=== PATIENT | female | born 1970 | race Two or more races ===

== ENCOUNTER 2020-03-04 17:56 | Inpatient (IN) | payer MEDICARE, OTHER ==
[~2020-03-04] VITALS: Ht 160 cm; Wt 46.7 kg
[2020-03-04] MEDS ORDERED: AMLO10TA7 PO (18:23)
[2020-03-04] MEDS ORDERED: MEROPENEM 500 MG in IV NS 0.9% 50 ML IV ONE (18:30)
[2020-03-04] MEDS ORDERED: ACETAMINOPHEN 650 MG/SUPP.RECT RC ONE ×2 (18:30→18:32)
[2020-03-04] MEDS ORDERED: VANCOMYCIN 1 GM in IV D5W 250 ML IV ONE (18:30)
--- NOTE | 2020-03-04 18:33 | NUR ---
RT NOTE PT RECEIVED IN ER TRACHED AND ON [facility] VENTILATION ON GIVEN SETTINGS. NO SIGNS OF RESPIRATORY DISTRESS NOTED. VENT PLUGGED INTO RED OUTLET WITH ALARMS ON AND AUDIBLE. Addendum: 03/04/20 at 1835 by BYRON QUINTANA RT Amended: Links added.
[2020-03-04 18:34] LABS: BASOPHILS # (AUTO) 0.2 /CMM (0.0-0.2); BASOPHILS % (AUTO) 0.5 % (0.0-2.0); EOSINOPHILS % (AUTO) 0.1 % (0.0-6.0); HEMATOCRIT 26 % (33-45); HEMOGLOBIN 8.1 g/dL (11.5-14.8); LYMPHOCYTES # (AUTO) 0.5 /CMM (0.8-4.8); MEAN CORPUSCULAR HGB CONC 31 g/dl (31.0-36.0); MEAN CORPUSCULAR VOLUME 94 fL (82-100); MONOCYTES # (AUTO) 0.9 /CMM (0.1-1.30); MONOCYTES % (AUTO) 3.1 % (2.0-12.0); NEUTROPHILS # (AUTO) 26.4 /CMM (1.8-8.9); NEUTROPHILS % (AUTO) 94.3 % (43.0-81.0); PLATELET COUNT (AUTO) 226 /CMM (150-450); RED BLOOD CELL COUNT(AUTO) 2.74 MIL/uL (4.0-5.2)
[2020-03-04 18:49] LABS: ALANINE AMINOTRANSFERASE 38 U/L (12-78); ALBUMIN 2.2 g/dL (3.4-5.0); ALKALINE PHOSPHATASE 329 U/L (46-116); ASPARTATE AMINOTRANSFERASE 31 U/L (15-37); BILIRUBIN,DIRECT 0.2 mg/dL (0.0-0.2); BILIRUBIN,TOTAL 0.7 mg/dL (0.2-1.0); CALCIUM, SERUM 8.4 mg/dL (8.5-10.1); CARBON DIOXIDE 27 mmol/L (21-32); CHLORIDE 94 mmol/L (98-107); CREATININE 1.8 mg/dL (0.6-1.3); GLUCOSE 226 mg/dL (74-106); SODIUM SERUM 137 mmol/L (136-145); TOTAL PROTEIN, SERUM 8.1 g/dL (6.4-8.2); UREA NITROGEN, BLOOD 29 mg/dL (7-18)
[2020-03-04 18:51] LABS: POTASSIUM 2.7 mmol/L (3.5-5.1)
--- NOTE | 2020-03-04 18:54 | NUR ---
[facility] FROM [facility]. TO ER BED 5. AAOX0. NOT IN RESP DISTRESS, PT IS VENT AND TRACH DEPENDENT, AC12, VT500, O2 40%, +5PEEP. BED BOUND. BROUGHT IN FOR HYPOTENTION S/P DIALYISIS. PT WAS NOTED @ 78/42 AFTER HD WAS DONE. PT WAS REPORT TO FINISH HER SESSION AND WEIGHT WAS 1/2 KILO NIGHT BAKER AFTER THE HD. UPON ASSESSMENT BP NOTED 93/47. PT IS NOTED WITH GT. WAS AT THE BEDSIDE FOR EVAL. ORDERS RECEIVED NOTED AND CARRIED OUT. IV LINE ESTABLISHED ON LFA 18F. BLOOD DRAWN AND GIVEN TO ARMATURE TESTER. PT IS ON MONITOR.
[2020-03-04] MEDS ORDERED: ACET-868 GT (19:00)
[2020-03-04] MEDS ORDERED: ATOR20TA GT (19:00)
[2020-03-04] MEDS ORDERED: CLON0.2T GT (19:00)
[2020-03-04] MEDS ORDERED: POLY17PO4 GT (19:00)
[2020-03-04] MEDS ORDERED: DOCU-141 GT (19:00)
[2020-03-04] MEDS ORDERED: AMIN887L GT (19:00)
[2020-03-04] MEDS ORDERED: HEPA1DIS12 IJ (19:00)
[2020-03-04] MEDS ORDERED: METO-295 PO (19:00)
[2020-03-04] MEDS ORDERED: MINO2.5T GT (19:00)
[2020-03-04] MEDS ORDERED: LACO200T2 GT (19:00)
[2020-03-04] MEDS ORDERED: DOXA4TAB3 GT (19:00)
[2020-03-04] MEDS ORDERED: SEVE800T8 GT (19:00)
[2020-03-04] MEDS ORDERED: SENN-18 GT (19:00)
[2020-03-04] MEDS ORDERED: LINA5TAB PO (19:00)
[2020-03-04] MEDS ORDERED: FOLI0.8T2 GT (19:00)
[2020-03-04] MEDS ORDERED: NITR0.4T48 SL (19:00)
[2020-03-04] MEDS ORDERED: HYDR-4075 GT (19:00)
[2020-03-04] MEDS ORDERED: PROC10TA13 GT (19:00)
[2020-03-04] MEDS ORDERED: CHLO473M3 MM (19:00)
[2020-03-04] MEDS ORDERED: LOSA50TA39 GT (19:00)
[2020-03-04] MEDS ORDERED: SIME80TA15 GT (19:00)
[2020-03-04] MEDS ORDERED: LEVE1000 GT (19:00)
[2020-03-04] MEDS ORDERED: PROP10TA10 PO (19:00)
[2020-03-04] MEDS ORDERED: NPH,100V SQ (19:00)
[2020-03-04] MEDS ORDERED: LANS30CA56 GT (19:00)
[2020-03-04] MEDS ORDERED: INSU100I43 SQ (19:00)
[2020-03-04] MEDS ORDERED: ONDA4TAB11 GT (19:00)
--- NOTE | 2020-03-04 19:23 | NUR ---
panel paged per Dr Brown's order
[2020-03-04] MEDS ORDERED: ACETAMINOPHEN 650 MG/SUPP.RECT RC PRN (20:00)
[2020-03-04] MEDS ORDERED: ONDANSETRON HCL/PF 4 MG/2 ML VIAL IVP PRN (20:00)
--- NOTE | 2020-03-04 20:10 | NUR ---
katie godfrey at bedside for eval
--- NOTE | 2020-03-04 20:13 | NUR ---
mid line inplace by epifanio wilson on BIJU with 18g.
[2020-03-04] MEDS: POTASSIUM CL. PREMIX PERIPHER. 50 ML IV SCH ×2 (20:23→21:49)
[2020-03-04] MEDS ORDERED: MIDODRINE HCL (5MG) 5 MG TABLET GT PRN (20:30)
[2020-03-04] MEDS ORDERED: DEXAMETHASONE SOD PHOSPHATE 10 MG/ML VIAL IV ONE (20:30)
[2020-03-04] MEDS ORDERED: ALBUTEROL SULFATE 8 GM HFA.AER.AD IH PRN (20:30)
[2020-03-04] MEDS ORDERED: DEXTROSE 50%-WATER 50 ML DISP.SYRIN IV PRN (20:30)
[2020-03-04] MEDS ORDERED: NEPRO 1,000 ML BOTTLE GT PRN (20:30)
[2020-03-04] MEDS ORDERED: PROCHLORPERAZINE MALEATE 10 MG TABLET GT PRN (21:30)
[2020-03-04] MEDS ORDERED: SIMETHICONE 80 MG TAB.CHEW GT PRN ×2 (21:30→23:30)
[2020-03-04] MEDS ORDERED: NITROGLYCERIN 0.4 MG/TAB BOTTLE SL PRN (21:30)
[2020-03-04] MEDS ORDERED: POLYETHYLENE GLYCOL 3350 17 GM POWD.PACK GT PRN (21:30)
[2020-03-04] MEDS ORDERED: POTASSIUM CL. PREMIX PERIPHER. 50 ML ONE (21:45)
--- NOTE | 2020-03-04 21:45 | NUR ---
gabriella overflow [phone]
--- NOTE | 2020-03-04 21:58 | NUR ---
REPORT GIVEN TO RUDDY MYRICK FOR ELLIOT
--- NOTE | 2020-03-04 22:17 | NUR ---
ICU/COMMUNITY SUPPORT PROFESSIONAL RECEIVED REPORT REPOST FROM ER NURSE.
[2020-03-04 22:30] VITALS: BP 93/60
--- NOTE | 2020-03-04 22:30 | NUR ---
ICU/OPERATING ROOM TECHNOLOGIST PT PLACED IN BED FROM ER, PLACED ON MONITOR. PT IS TELE STATUS, IN ICU WITH R/O COVID. WILL CONTINUE TO MONITOR THIS PT.
[2020-03-04] MEDS ORDERED: ATORVASTATIN 10 MG TABLET GT SCH (22:31)
--- NOTE | 2020-03-04 22:31 | NUR ---
pt transported to unit on gurney with emt, rt, and rn at bedside w/ acls protocol. nad notd during this transport.
[2020-03-04 22:33] VITALS: BP 126/64
[2020-03-04 23:00] VITALS: BP 93/60
[2020-03-04] MEDS: IV NS 0.9% 250 ML IV PRN (23:06)
[2020-03-04] MEDS ORDERED: PIPERACILLIN /TAZOBACTAM 3.375 G VIAL IV ONE (23:13)
[2020-03-04] MEDS: DEXAMETHASONE SOD PHOSPHATE 10 MG/ML VIAL IV SCH (23:19)
[2020-03-04] MEDS: SENNOSIDES 8.6 MG TABLET GT SCH (23:19)
[2020-03-04] MEDS: LACOSAMIDE 50 MG TABLET GT SCH (23:20)
[2020-03-04 23:28] LABS: C-REACTIVE PROTEIN 17.7 mg/dL (0.0-0.9)
[2020-03-04 23:30] VITALS: BP 91/49
[2020-03-04] MEDS: PIPERACILLIN /TAZOBACTAM 3.375 G in IV D5W 50 ML IV SCH (23:36)
[2020-03-04 23:47] VITALS: BP 85/53
[2020-03-04] MEDS: BLOOD SUGAR DIAGNOSTIC 1 EACH STRIP IN SCH (23:57)
[2020-03-04] MEDS: INSULIN REGULAR, HUMAN 100 UNIT/ML 3 ML VIAL SQ PRN (23:58)
[2020-03-05] VITALS (82 sets, daily range): BP systolic 81–155; BP diastolic 45–85
[2020-03-05] MEDS ORDERED: PIPERACILLIN /TAZOBACTAM 3.375 G in IV D5W 50 ML IV SCH ×2
[2020-03-05] MEDS ORDERED: NOREPINEPHRINE 8MG/250ML RTU 250 ML IV ONE (00:04)
--- NOTE | 2020-03-05 00:15 | NUR ---
ICU/SUBSTATION OPERATOR CHIEF 0000-LOW BP PT'S BP IS 80'S, MADE CHARGE NURSE AWARE OF THIS. CALL PLACED TO BRIDGE SAW OPERATOR MD JOY VILLEGAS FOR THIS. GAVE ORDER FOR SINGLE DOSE LEVO TO KEEP SBP ABOVE 90. CHARGE NURSE MADE AWARE OF THIS ORDER. ALSO CHANGED PT'S STATUS TO ICU FROM TELE. 0015-LEVO UP LEVO STARTED AT LOW DOSE 0.1 PER PROTOCOL FOR LOW BP 80'S. WILL MONITOR THIS PT'S BP PER PROTOCOL.
[2020-03-05] MEDS ORDERED: NOREPINEPHRINE 8 MG in IV NS 0.9% 242 ML IV PRN (00:30)
--- NOTE | 2020-03-05 00:40 | NUR ---
ICU/SUPERVISOR QUILTING NEPHRO FEEDING STARTED AT 40ML WITH GOAL AT 60ML. WILL CHECK AND MONITOR RESIDUALS CLOSELY.
--- NOTE | 2020-03-05 01:00 | NUR ---
ICU/DIRECTOR RADIO PT TOLERATING FEEDING, INCREASED TO 50ML FROM 40ML, GOAL IS 60. WILL MONITOR THIS PT'S RESIDUAL.
--- NOTE | 2020-03-05 01:24 | NUR ---
RT NOTE Pt rec'd trached on [facility] vent on AC mode. Pt shows no signs of resp distress or sob. Trach is patent and secured. Pt sx'd for thick mod amount of yellow secretions. Alarms are set and audible. Vent plugged into red outlet. ambu bag and emergency spare trach is bedside. Will continue to monitor closely. Addendum: 03/05/20 at 0124 by FLOR VILLA RT Amended: Links added.
[2020-03-05] MEDS ORDERED: INSULIN REGULAR, HUMAN 100 UNIT/ML 3 ML VIAL ONE (02:08)
--- NOTE | 2020-03-05 03:00 | NUR ---
ICU/SWISS MACHINIST PT'S SBP IS STABLE AT 130'S LEVO ON HOLD PER CHARGE NURSE, AND PROTOCOL WILL CONTINUE TO MONITOR THIS PT'S SBP.
--- NOTE | 2020-03-05 04:00 | NUR ---
ICU/CONCHE OPERATOR SBP STATED AGAIN DUE TO SBP AT 80'S, PT WAS TURNED AND REPOSITIONED FOR COMFORT AND CARE. WILL CONTINUE TO MONITOR THIS PT.
--- NOTE | 2020-03-05 05:00 | NUR ---
ICU/PORT CRANE OPERATOR SBP IS STABLE AT 100'S, LEVO WAS DECREASED DOWN TO 0.08 FROM 0.1. WILL CONTINUE TO MONITOR THIS PT AND HER SBP.
[2020-03-05] MEDS ORDERED: PIPERACILLIN /TAZOBACTAM 3.375 G VIAL IV ONE (05:16)
[2020-03-05] MEDS ORDERED: INSULIN NPH, HUMAN ISOPHANE 100 UNIT/ML VIAL SQ ONE (05:29)
--- NOTE | 2020-03-05 06:00 | NUR ---
ICU/COIN WRAPPING MACHINE OPERATOR SBP IS STABLE AT 100'S, LEVO WAS DECREASED DOWN TO 0.06 FROM 0.06. WILL CONTINUE TO MONITOR THIS PT AND HER SBP.
[2020-03-05] MEDS: SEVELAMER CARBONATE 800 MG POWD.PACK GT SCH ×3 (06:22→21:13)
[2020-03-05] MEDS: METOCLOPRAMIDE HCL 10 MG TABLET PO SCH ×3 (06:23→21:14)
[2020-03-05] MEDS: BLOOD SUGAR DIAGNOSTIC 1 EACH STRIP IN SCH ×3 (06:24→18:26)
[2020-03-05] MEDS: INSULIN NPH, HUMAN ISOPHANE 100 UNIT/ML VIAL SQ SCH ×3 (06:24→21:26)
[2020-03-05] MEDS: PIPERACILLIN /TAZOBACTAM 3.375 G in IV D5W 50 ML IV SCH (06:25)
[2020-03-05] MEDS: INSULIN REGULAR, HUMAN 100 UNIT/ML 3 ML VIAL SQ PRN ×3 (06:49→18:28)
--- NOTE | 2020-03-05 07:30 | NUR ---
RN/ICU RECEIVED PATIENT IN BED. NO ACUTE DISTRESS NOTED. PATIENT ALERT TO SELF, OPENS EYES, BUT NONVERBAL. PATIENT ON LEVO RUNNING AT 0.06, SBP AT 118. PATIENT TOLERATING MECHANICAL VENTILATOR SETTINGS WELL, SATURATING AT 100%. PATIENT ON SUPERVISOR MAINTENANCE, NORMAL SINUS RHYTHM NOTED. PATIENT G-TUBE INTACT, FLUSHED WELL. PATIENT RIGHT UPPER ARM MIDLINE IN PLACE, INTACT, PATENT, FLUSHED WELL. PATIENT LEFT FOREARM AND RIGHT WRIST IV ACCESS IN PLACE, INTACT, PATENT, FLUSHED WELL. PATIENT SAFETY MEASURES MAINTAINED. CALL LIGHT WITHIN REACH. WILL CONTINUE TO MONITOR.
--- NOTE | 2020-03-05 08:21 | NUR ---
WOUND CARE CONSULT: REVIEWED CHART, NURSING DOCUMENTATION AND PHOTO WHICH INDICATES SACRAL DEEP TISSUE INJURY IN EVOLUTION, PRESENT ON ADMISSION. RECOMMENDATIONS MADE FOR SKIN PROTECTION. DISCUSSED WITH NURSING STAFF. RECOMMEND SURGICAL CONSULT. FIRST STEP LOW AIRLOSS MATTRESS IS ON ORDER. MD IN AGREEMENT WITH PLAN OF CARE. Addendum: 03/05/20 at 6885 by JOSÉ MULLER WNDNU DR IVORY NOTIFIED OF SURGICAL CONSULT REQUEST.
[2020-03-05] MEDS ORDERED: Z GUARD REMEDY 2 OZ OINT TP PRN (08:30)
[2020-03-05] MEDS: CHLORHEXIDINE GLUCONATE 15 ML UDC MM SCH (08:49)
[2020-03-05] MEDS: LEVETIRACETAM SOL (5 ML) 100 MG/ML UDC GT SCH ×2 (08:49→21:13)
[2020-03-05] MEDS: LACOSAMIDE 50 MG TABLET GT SCH ×2 (08:49→21:13)
[2020-03-05] MEDS: VIT B CMPLX 3/FA/VIT C/BIOTIN 1 TAB TABLET GT SCH (08:49)
[2020-03-05] MEDS: HYDROCORTISONE SOD SUCCINATE 100 MG/2 ML VIAL IV SCH ×3 (08:49→21:11)
[2020-03-05] MEDS: DOCUSATE SODIUM 100 MG CAPSULE PO SCH ×2 (08:50→16:04)
[2020-03-05] MEDS: LINAGLIPTIN 5 MG TABLET PO SCH (08:50)
[2020-03-05] MEDS: APIXABAN 2.5 MG TABLET PO SCH ×2 (08:51→16:05)
[2020-03-05] MEDS: Z GUARD REMEDY 2 OZ OINT TP SCH (08:51)
[2020-03-05] MEDS ORDERED: HEPARIN SODIUM PORCINE IJ SCH (09:00)
[2020-03-05] MEDS ORDERED: MINOXIDIL (2.5MG) 2.5 MG TABLET GT SCH (09:00)
[2020-03-05] MEDS ORDERED: DOXAZOSIN MESYLATE (4 MG) 4 MG TABLET GT SCH (09:00)
[2020-03-05] MEDS ORDERED: [UNRECOGNIZED DRUG - OTHER] IJ SCH (09:00)
[2020-03-05] MEDS ORDERED: VANCOMYCIN 500 MG in IV D5W 100 ML IV PRN (10:00)
[2020-03-05] MEDS ORDERED: PIPERACILLIN /TAZOBACTAM 3.375 G in IV D5W 100 ML IV SCH (10:00)
--- NOTE | 2020-03-05 10:18 | NUR ---
RN/ICU PER DIETARY, CHANGING TUBE FEEDING FROM NEPRO AT 60 TO NEPRO AT 30.
[2020-03-05 11:13] LABS: BASOPHILS # (AUTO) 0.1 /CMM (0.0-0.2); BASOPHILS % (AUTO) 0.3 % (0.0-2.0); EOSINOPHILS % (AUTO) 0.1 % (0.0-6.0); HEMATOCRIT 25 % (33-45); HEMOGLOBIN 7.9 g/dL (11.5-14.8); LYMPHOCYTES # (AUTO) 0.5 /CMM (0.8-4.8); LYMPHOCYTES % (AUTO) 2.2 % (20.0-44.0); MEAN CORPUSCULAR HGB CONC 31 g/dl (31.0-36.0); MEAN CORPUSCULAR VOLUME 94 fL (82-100); MONOCYTES # (AUTO) 0.4 /CMM (0.1-1.30); NEUTROPHILS # (AUTO) 20.5 /CMM (1.8-8.9); NEUTROPHILS % (AUTO) 95.4 % (43.0-81.0); PLATELET COUNT (AUTO) 290 /CMM (150-450); RED BLOOD CELL COUNT(AUTO) 2.69 MIL/uL (4.0-5.2); WHITE BLOOD COUNT (AUTO) 21.5 K/uL (4.3-11.0)
[2020-03-05 11:29] LABS: ALBUMIN 2.2 g/dL (3.4-5.0); BILIRUBIN,TOTAL 0.5 mg/dL (0.2-1.0); CALCIUM, SERUM 9.2 mg/dL (8.5-10.1); CREATININE 2.5 mg/dL (0.6-1.3); MAGNESIUM 2.6 mg/dL (1.8-2.4); PHOSPHORUS 1.9 mg/dL (2.5-4.9); POTASSIUM 3.5 mmol/L (3.5-5.1); TOTAL PROTEIN, SERUM 8.4 g/dL (6.4-8.2)
[2020-03-05] MEDS: PIPERACILLIN /TAZOBACTAM 2.25 G in IV D5W 50 ML IV SCH ×2 (11:42→17:14)
[2020-03-05 11:59] LABS: LYMPHOCYTES % (MANUAL) 4 % (16-48); MONOCYTES % (MANUAL) 2 % (0-11.0); NEUTROPHILS % (MANUAL) 94 (42-76)
[2020-03-05 12:31] LABS: MAGNESIUM 2.6 mg/dL (1.8-2.4)
[2020-03-05 13:47] LABS: THYROID STIMULATING HORMONE 1.183 uIU/mL (0.358-3.74)
[2020-03-05] MEDS ORDERED: IV NS 0.9% 1,000 ML IV PRN (14:30)
[2020-03-05] MEDS ORDERED: NEUTRA PHOS 1 POWD.PACKET GT ONE (16:00)
--- NOTE | 2020-03-05 17:47 | NUR ---
RN/ICU PATIENT CORTISOL LEVEL REPORTED BY LAB OF 90.5. DR. PARIS CONTACTED AND NOTIFIED. AWAITING ORDERS
--- NOTE | 2020-03-05 18:54 | NUR ---
PATIENT IN BED. NO ACUTE DISTRESS NOTED. PATIENT ALERT TO SELF, OPENS EYES, BUT NONVERBAL. PATIENT TOLERATING MECHANICAL VENTILATOR SETTINGS WELL, SATURATING AT 100%. PATIENT ON EDUCATION AND OUTREACH COORDINATOR, NORMAL SINUS RHYTHM NOTED. PATIENT G-TUBE INTACT, FLUSHED WELL. PATIENT RIGHT UPPER ARM MIDLINE IN PLACE, INTACT, PATENT, FLUSHED WELL. PATIENT LEFT FOREARM AND RIGHT WRIST IV ACCESS IN PLACE, INTACT, PATENT, FLUSHED WELL. PATIENT SAFETY MEASURES MAINTAINED. CALL LIGHT WITHIN REACH. WILL ENDORSE PLAN OF CARE TO ONCOMING SHIFT FOR CONTINUITY OF CARE
--- NOTE | 2020-03-05 19:10 | NUR ---
RN OPENING NOTES: Rec'd pt in bed, nonverbal, alert to self. On trach and mechanical ventilation tolerating settings well. No respiratory distress noted. Breathing even and unlabored. SR on tele monitor. GT site patent and flushed with minimal residual noted. GTF Nepro infusing at 30ml/hr, tolerating well. BIJU midline, LFA #18 and right wrist #20 patent and flushed. Dressings c/d/i. Left arm HD cath noted. No pain noted at this time. Safety measures in place. Will continue to monitor.
[2020-03-05] MEDS: SENNOSIDES 8.6 MG TABLET GT SCH (21:14)
[2020-03-05] MEDS: DEXAMETHASONE SOD PHOSPHATE 10 MG/ML VIAL IV SCH (21:14)
--- NOTE | 2020-03-05 21:54 | NUR ---
RN NOTE: Rec'd call from lab. Pt's blood cx came back gram positive cocci + clusters. Paged Ayana SOSA and she responded with "ok".
[2020-03-06] VITALS (21 sets, daily range): BP systolic 133–170; BP diastolic 72–87
[2020-03-06] MEDS: PIPERACILLIN /TAZOBACTAM 2.25 G in IV D5W 50 ML IV SCH ×4 (00:03→17:24)
[2020-03-06] MEDS: BLOOD SUGAR DIAGNOSTIC 1 EACH STRIP IN SCH ×4 (00:12→17:09)
[2020-03-06] MEDS: INSULIN REGULAR, HUMAN 100 UNIT/ML 3 ML VIAL SQ PRN ×4 (00:15→17:27)
[2020-03-06] MEDS: IV NS 0.9% 250 ML IV PRN (01:39)
--- NOTE | 2020-03-06 02:00 | NUR ---
RT NOTE Pt rec'd trached on [facility] vent on AC mode. Pt shows no signs of resp distress or sob. Trach is patent and secured. Pt sx'd for thick mod amount of yellow secretions. Alarms are set and audible. Vent plugged into red outlet. ambu bag and emergency spare trach is bedside. Will continue to monitor closely. Addendum: 03/06/20 at 0200 by FLOR VILLA RT Amended: Links added.
[2020-03-06] MEDS: NEPRO 1,000 ML BOTTLE GT PRN (02:05)
[2020-03-06] MEDS: SEVELAMER CARBONATE 800 MG POWD.PACK GT SCH ×3 (04:35→21:41)
[2020-03-06] MEDS: METOCLOPRAMIDE HCL 10 MG TABLET PO SCH ×3 (04:35→21:40)
[2020-03-06] MEDS: HYDROCORTISONE SOD SUCCINATE 100 MG/2 ML VIAL IV SCH (04:35)
[2020-03-06] MEDS: INSULIN NPH, HUMAN ISOPHANE 100 UNIT/ML VIAL SQ SCH ×3 (04:50→21:00)
[2020-03-06 05:06] LABS: BASOPHILS % (AUTO) 0.1 % (0.0-2.0); HEMATOCRIT 28 % (33-45); HEMOGLOBIN 8.9 g/dL (11.5-14.8); LYMPHOCYTES # (AUTO) 0.3 /CMM (0.8-4.8); LYMPHOCYTES % (AUTO) 1.9 % (20.0-44.0); MEAN CORPUSCULAR HGB CONC 32 g/dl (31.0-36.0); MEAN CORPUSCULAR VOLUME 93 fL (82-100); MONOCYTES # (AUTO) 0.3 /CMM (0.1-1.30); MONOCYTES % (AUTO) 1.5 % (2.0-12.0); NEUTROPHILS # (AUTO) 16.2 /CMM (1.8-8.9); NEUTROPHILS % (AUTO) 96.5 % (43.0-81.0); PLATELET COUNT (AUTO) 261 /CMM (150-450); RED BLOOD CELL COUNT(AUTO) 3.03 MIL/uL (4.0-5.2); WHITE BLOOD COUNT (AUTO) 16.8 K/uL (4.3-11.0)
[2020-03-06 05:30] LABS: ALANINE AMINOTRANSFERASE 30 U/L (12-78); ALBUMIN 2.1 g/dL (3.4-5.0); ALKALINE PHOSPHATASE 332 U/L (46-116); ASPARTATE AMINOTRANSFERASE 19 U/L (15-37); BILIRUBIN,TOTAL 0.5 mg/dL (0.2-1.0); CALCIUM, SERUM 9.6 mg/dL (8.5-10.1); CARBON DIOXIDE 31 mmol/L (21-32); CHLORIDE 94 mmol/L (98-107); CREATININE 3.1 mg/dL (0.6-1.3); GLUCOSE 303 mg/dL (74-106); MAGNESIUM 2.7 mg/dL (1.8-2.4); POTASSIUM 3.8 mmol/L (3.5-5.1); SODIUM SERUM 136 mmol/L (136-145); TOTAL PROTEIN, SERUM 8.2 g/dL (6.4-8.2); UREA NITROGEN, BLOOD 65 mg/dL (7-18)
--- NOTE | 2020-03-06 07:04 | NUR ---
RN CLOSING NOTES: Pt remains stable throughout shift. On trach and mech ventilation, tolerating settings well. No SOB or resp distress noted throughout shift. Breathing even and unlabored. Suctioned as needed. No acute changes noted throughout shift. SR/ST on tele monitor. BIJU midline patent and flushed w/ NS infusing at 75ml/hr. LFA #18 and right wrist #20 patent and flushed. Dressings c/d/i. GT site patent and flushed, with no residuals noted. Nepro infusing at 30ml/hr. Kept clean/dry. Wound tx done. All meds given as ordered. Safety measures in place. Will endorse to oncoming nurse for ELLIOT.
--- NOTE | 2020-03-06 07:30 | NUR ---
rn notes received patient in bed, awake with spontaneous eye opening. nonverbal. unable to follow commands. trach at midline position, tolerating current vent settings as follows ac at 12, tv 500, Fio2 at 40% , peep 0. with copius yelllowish secretion from the trach. patient noted sinus tachy on the monitor with hr at 106. gt in place and with ongoing gtf at 30cc/hr, placement noted through auscultation, no residual taken at this time. midline on the veda, flushing well, dressing dry and intact, with ongoing ns at 75cc/hr. hob kep elevated for sap. safety measures observed and maintained. call light placed within reach. will continue to monitor patient accordingly.
[2020-03-06] MEDS: DOCUSATE SODIUM 100 MG CAPSULE PO SCH ×2 (09:20→16:57)
[2020-03-06] MEDS: CHLORHEXIDINE GLUCONATE 15 ML UDC MM SCH (09:20)
[2020-03-06] MEDS: LACOSAMIDE 50 MG TABLET GT SCH ×2 (09:21→21:40)
[2020-03-06] MEDS: VIT B CMPLX 3/FA/VIT C/BIOTIN 1 TAB TABLET GT SCH (09:21)
[2020-03-06] MEDS: LEVETIRACETAM SOL (5 ML) 100 MG/ML UDC GT SCH ×2 (09:21→21:40)
[2020-03-06] MEDS: LINAGLIPTIN 5 MG TABLET PO SCH (09:22)
[2020-03-06] MEDS: Z GUARD REMEDY 2 OZ OINT TP SCH (09:22)
[2020-03-06] MEDS: APIXABAN 2.5 MG TABLET PO SCH ×2 (09:23→16:44)
[2020-03-06] MEDS ORDERED: EPOETIN ALFA (10,000 UNIT) 10,000 UNIT/ML VIAL IV ONE (14:30)
--- NOTE | 2020-03-06 15:00 | NUR ---
rn notes spoke to Linda,[facility] spoke about patient getting dialyze today but is with vancomycin throuhg at 22. Per Linda, no need to give vancomycin dose at this time
--- NOTE | 2020-03-06 15:30 | NUR ---
TANK SYSTEMS MAINTAINER NOTES Received pt nonverbal, alert to self. On trach and mechanical ventilation tolerating settings well. No respiratory distress noted. Breathing even and unlabored. SR on tele monitor. GT site intact and patent. GTF Nepro infusing at 30ml/hr, tolerating well. BIJU midline, LFA #18 and right wrist #20 patent and flushed. Dressings c/d/i. Left arm HD cath noted. No pain noted at this time. Safety measures in place. Will continue to monitor. Addendum: 03/06/20 at 1626 by MIQUEL GREY RN clarification of documentation Notes above noted @ 1600
--- NOTE | 2020-03-06 15:30 | NUR ---
RECEIVED REPORT FROM [facility].
--- NOTE | 2020-03-06 15:45 | NUR ---
rn notes patient transferred to room 118-1 via acls protocol. reposrt given to RUDDY Grove. especially endorsed epogen administration because medication was just delivered at tthe time of transport. hand off
--- NOTE | 2020-03-06 20:00 | NUR ---
RN OPENING NOTE RECEIVED PT IN BED, PT OPEN EYES TO TOUCH, DOES NOT FOLLOW COMMANDS. PT IS ON VENT VIA TRACH SATING 98%.PT IS ON MONITOR SHOWING SR IN 90s, PT HAS G TUBE NEPRO RUNNING AT 30 ML/H, G TUBE IS PATENT, NO RESIDUAL NOTED, AND AUSCULTATED FOR PLACEMENT. SAFETY MEASURES IN PLACE. HOB ELEVATED, BED AT LOWEST POSITION AND LOCKED, SIDE RAILS UP X2.
--- NOTE | 2020-03-06 20:23 | NUR ---
RT sputum collected. sent to lab
[2020-03-06] MEDS: DEXAMETHASONE SOD PHOSPHATE 10 MG/ML VIAL IV SCH (21:40)
[2020-03-06] MEDS: SENNOSIDES 8.6 MG TABLET GT SCH (22:04)
--- NOTE | 2020-03-06 23:00 | NUR ---
RN NOTE NOVOLIN NON ADMINISTERED, IT IS NOT AVAILABLE. JOY (PALM GATHERER) MADE AWARE.
[2020-03-07] VITALS: BP 140/74
[2020-03-07] MEDS: BLOOD SUGAR DIAGNOSTIC 1 EACH STRIP IN SCH ×5 (00:15→23:18)
[2020-03-07] MEDS: PIPERACILLIN /TAZOBACTAM 2.25 G in IV D5W 50 ML IV SCH ×5 (00:15→23:23)
[2020-03-07] MEDS: INSULIN REGULAR, HUMAN 100 UNIT/ML 3 ML VIAL SQ PRN ×5 (00:19→23:23)
[2020-03-07] MEDS: IV NS 0.9% 250 ML IV PRN (02:50)
[2020-03-07 04:00] VITALS: BP 144/85
[2020-03-07] MEDS: ACETAMINOPHEN 650 MG/20.3 ML UDC GT PRN (04:24)
[2020-03-07] MEDS: INSULIN NPH, HUMAN ISOPHANE 100 UNIT/ML VIAL SQ SCH ×3 (05:00→21:39)
--- NOTE | 2020-03-07 05:10 | NUR ---
RN NOTE NOVOLIN NON ADMINISTERED, IT IS NOT AVAILABLE.
[2020-03-07] MEDS: METOCLOPRAMIDE HCL 10 MG TABLET PO SCH ×3 (05:45→21:32)
[2020-03-07] MEDS: SEVELAMER CARBONATE 800 MG POWD.PACK GT SCH ×3 (05:46→21:31)
--- NOTE | 2020-03-07 07:22 | NUR ---
RN CLOSING NOTE PT REMAINED STABLE DURING MY SHIFT , NO ACUTE CHANGES. REPORT GIVEN TO INCOMING SHIFT FOR ELLIOT.
--- NOTE | 2020-03-07 07:30 | NUR ---
ROLLOFF DRIVER OPENING NOTES Pt remaines nonverbal, alert to self. On trach and mechanical ventilation tolerating settings well. No respiratory distress noted. Breathing even and unlabored. SR on tele monitor. GT site intact and patent. GTF Nepro infusing at 30ml/hr, tolerating well. BIJU midline, LFA #18 intact and flushed. Left arm HD cath noted. Safety measures in place. Will continue to monitor.
[2020-03-07 08:00] VITALS: BP 134/68
[2020-03-07] MEDS: VIT B CMPLX 3/FA/VIT C/BIOTIN 1 TAB TABLET GT SCH (08:33)
[2020-03-07] MEDS: DOCUSATE SODIUM 100 MG CAPSULE PO SCH ×2 (08:33→18:32)
[2020-03-07] MEDS: LEVETIRACETAM SOL (5 ML) 100 MG/ML UDC GT SCH ×2 (08:33→21:31)
[2020-03-07] MEDS: LINAGLIPTIN 5 MG TABLET PO SCH (08:34)
[2020-03-07] MEDS: APIXABAN 2.5 MG TABLET PO SCH ×2 (08:34→18:33)
[2020-03-07] MEDS: LACOSAMIDE 50 MG TABLET GT SCH ×2 (08:35→21:32)
[2020-03-07] MEDS: CHLORHEXIDINE GLUCONATE 15 ML UDC MM SCH (08:35)
[2020-03-07] MEDS: Z GUARD REMEDY 2 OZ OINT TP SCH (09:20)
[2020-03-07 12:00] VITALS: BP 137/79
[2020-03-07 16:00] VITALS: BP 138/76
--- NOTE | 2020-03-07 19:00 | NUR ---
REMEDIAL READING TEACHER CLOSING NOTES Pt remains awake and comfortable. On trach and mech ventilation, tolerating settings well. No SOB or resp distress noted throughout shift. Breathing even and unlabored. Suctioned as needed. No acute changes noted throughout shift. SR/ST on tele monitor. BIJU midline patent and flushed w/ NS infusing at 75ml/hr. LFA #18. GTF intact and flushing well, with no residuals noted. Nepro infusing at 30ml/hr. Kept clean/dry. All meds given as ordered. Safety measures in place. Will endorse to oncoming nurse for ELLIOT
--- NOTE | 2020-03-07 19:44 | NUR ---
EDITOR FARM JOURNAL OPENING NOTE: Patient in bed sleeping comfortably. Patient does not appear to be in any pain. Patient on mechanical ventilator and tolerating settings well. Patient is breathing even and unlabored with no respiratory distress or SOB noted. Patient on gtube feeding. Gtube is patent and receving nepro@ 30mL/hr. Noted IV access on left forearm, 18 gauge, patent, no redness, or infiltration. Also noted right upper arm midline, patent, dressing is dry and intact, no redness or infiltration. Left arm AV shunt noted, thrill and bruit present. Safety precaution is in place, bed is in the lowest level, brakes are on, alarm is on, side rails x2 are up, and call light is within reach. Will continue to monitor.
[2020-03-07 20:00] VITALS: BP 155/80
[2020-03-07] MEDS: SENNOSIDES 8.6 MG TABLET GT SCH (21:33)
[2020-03-07] MEDS: DEXAMETHASONE SOD PHOSPHATE 10 MG/ML VIAL IV SCH (21:33)
[2020-03-07] MEDS: NEPRO 1,000 ML BOTTLE GT PRN (23:30)
[2020-03-08] VITALS: BP 169/88
--- NOTE | 2020-03-08 00:15 | NUR ---
PIPE FITTER WELDING NOTE: Patient temperature is 100.2. Patient room air conditioning is not working. Made charge nurse aware. Called engineering to get the AC fixed but could not get anyone. Will call again in 10 minutes. Cooling measures are taken on the patient. Patient is getting a bed bath and will apply cold towel on forehead and axillae. Will continue to monitor.
[2020-03-08 04:00] VITALS: BP 143/74
[2020-03-08] MEDS: SEVELAMER CARBONATE 800 MG POWD.PACK GT SCH ×3 (05:00→21:09)
[2020-03-08] MEDS: METOCLOPRAMIDE HCL 10 MG TABLET PO SCH ×3 (05:01→21:08)
[2020-03-08] MEDS: INSULIN NPH, HUMAN ISOPHANE 100 UNIT/ML VIAL SQ SCH ×3 (05:04→21:18)
[2020-03-08] MEDS: BLOOD SUGAR DIAGNOSTIC 1 EACH STRIP IN SCH ×4 (05:07→23:31)
[2020-03-08] MEDS: INSULIN REGULAR, HUMAN 100 UNIT/ML 3 ML VIAL SQ PRN ×4 (05:07→23:35)
[2020-03-08] MEDS: PIPERACILLIN /TAZOBACTAM 2.25 G in IV D5W 50 ML IV SCH ×4 (05:12→23:36)
--- NOTE | 2020-03-08 06:32 | NUR ---
SUPERVISOR BUILDING MAINTENANCE CLOSING NOTE: Patient in bed sleeping comfortably. Patient shows no signs of pain or discomfort at this time. All patients needs attended to and plan of care was carried out. Patient is tolerating vent settings, no sob, or respiratory distress noted. Ensured patient safety. Safety measures are in place, bed is in the lowest level, bed is locked, alarm is on, side rails x2 are up, and call light is within reach. Will endorse to next shift.
[2020-03-08 07:23] LABS: BASOPHILS % (AUTO) 0.2 % (0.0-2.0); EOSINOPHILS % (AUTO) 0.1 % (0.0-6.0); HEMATOCRIT 27 % (33-45); HEMOGLOBIN 8.4 g/dL (11.5-14.8); LYMPHOCYTES # (AUTO) 0.6 /CMM (0.8-4.8); LYMPHOCYTES % (AUTO) 3.4 % (20.0-44.0); MEAN CORPUSCULAR HGB CONC 32 g/dl (31.0-36.0); MEAN CORPUSCULAR VOLUME 94 fL (82-100); MONOCYTES # (AUTO) 0.6 /CMM (0.1-1.30); MONOCYTES % (AUTO) 3.4 % (2.0-12.0); NEUTROPHILS # (AUTO) 16.4 /CMM (1.8-8.9); NEUTROPHILS % (AUTO) 92.9 % (43.0-81.0); PLATELET COUNT (AUTO) 293 /CMM (150-450); RED BLOOD CELL COUNT(AUTO) 2.84 MIL/uL (4.0-5.2); WHITE BLOOD COUNT (AUTO) 17.6 K/uL (4.3-11.0)
[2020-03-08 08:00] VITALS: BP 178/55
--- NOTE | 2020-03-08 08:00 | NUR ---
RN NOTES RECEIVED PATIENT IN THE BED TRACHEA/VENT DEPENDENT, PATIENT HAS NO ACUTE RESPIRATORY DISTRESS, V/S WNL, TOTAL CARE, KEEP HOB ELEVATED FOR ASPIRATION PRECAUTION, RESIDUAL AND PLACEMENT CHECKED. DUE MEDICATION ADMINISTERED VIA GT, INFUSING NEPRO 1.8 AT 30ML/HR, RIGHT UA MIDLINE, KEEP NS AT 10 ML/HR. ASSIST TURN AND REPOSTION Q 2 HR, WILL CONTINUED MONITORING.
[2020-03-08 09:04] LABS: CALCIUM, SERUM 10.2 mg/dL (8.5-10.1); MAGNESIUM 2.8 mg/dL (1.8-2.4); PHOSPHORUS 4.1 mg/dL (2.5-4.9); POTASSIUM 3.4 mmol/L (3.5-5.1)
[2020-03-08] MEDS: LEVETIRACETAM SOL (5 ML) 100 MG/ML UDC GT SCH ×2 (09:28→21:08)
[2020-03-08] MEDS: VIT B CMPLX 3/FA/VIT C/BIOTIN 1 TAB TABLET GT SCH (09:37)
[2020-03-08] MEDS: CHLORHEXIDINE GLUCONATE 15 ML UDC MM SCH (09:37)
[2020-03-08] MEDS: DOCUSATE SODIUM 100 MG CAPSULE PO SCH ×2 (09:38→16:54)
[2020-03-08] MEDS: APIXABAN 2.5 MG TABLET PO SCH ×2 (09:38→16:53)
[2020-03-08] MEDS: LINAGLIPTIN 5 MG TABLET PO SCH (09:38)
[2020-03-08] MEDS: Z GUARD REMEDY 2 OZ OINT TP SCH (09:40)
[2020-03-08] MEDS: LACOSAMIDE 50 MG TABLET GT SCH ×2 (09:40→21:09)
[2020-03-08 10:16] LABS: BAND % (MANUAL) 2 % (0.0-5.0); LYMPHOCYTES % (MANUAL) 6 % (16-48); MONOCYTES % (MANUAL) 4 % (0-11.0); NEUTROPHILS % (MANUAL) 88 (42-76)
[2020-03-08 12:00] VITALS: BP 176/84
--- NOTE | 2020-03-08 12:49 | NUR ---
RN NOTES BS-150 MG/DL, COVERAGE GIVEN, , ADMINISTERED SCHEDULED MEDICATION, CONTINUED MONITORING.
[2020-03-08] MEDS: IV NS 0.9% 250 ML IV PRN (13:15)
[2020-03-08] MEDS ORDERED: hydrALAZINE HCL IV 20 MG VIAL IV PRN (14:00)
--- NOTE | 2020-03-08 14:00 | NUR ---
RN NOTES BP 176/84, P-88, CALLED Dr SOUSA AND GET TO ORDER NORVASC 10 MG GT DAILY, AND HYDRALAZINE 10 MG IV PUSH IF BP > 170, ORDER TAKEN AND CARRIED OUT.
[2020-03-08] MEDS: AMLODIPINE BESYLATE 10 MG TABLET PO SCH (14:44)
[2020-03-08 16:00] VITALS: BP 159/75
--- NOTE | 2020-03-08 18:30 | NUR ---
RN NOTES BS-158 MG/DL, COVERAGE GIVEN, ALSO ADMINISTERED DUT MEDICATION VIA GT. NO ACUTE RESPIRATORY DISTRESS, KEEP HOB ELEVATED TO ASPIRATION PRECAUTION, GTF-30ML/HR INTACT, IV ACCESS ON RIGHT UA INTACT INFUSING NS AT 10ML/HR. ASSIST TURN AND REPOSTION Q 2 HR, CALL LIGHT WITHIN TO REACH, ENDORSED ONCOMING NURSE FOLLOW PLAN OF CARE.
[2020-03-08 20:00] VITALS: BP 138/75
--- NOTE | 2020-03-08 20:00 | NUR ---
yarn weigher: received report from naren grove. pt in bed, obtunded, mech vent trache dependent, ambu bag available at bed side, all clinical alarms check, visible and audible. suction set up secured. continuous pulse ox monitoring. pt gtube in placed, able to flush easily with water without meeting resistance. pt receiving nepro at 30ml/hr. hob kept 40 degree at all times. precaution for left arm, posted on pt's wall/room. ble offloaded on pillows. veda midline in placed, patent and flushing well, on hl. tele monitoring sinus rhythm hr 80. safety precautions for fall initiated, call light in reach, will continue monitoring pt.
[2020-03-08] MEDS: SENNOSIDES 8.6 MG TABLET GT SCH (21:09)
[2020-03-08] MEDS: DEXAMETHASONE SOD PHOSPHATE 10 MG/ML VIAL IV SCH (21:16)
[2020-03-08] MEDS: NEPRO 1,000 ML BOTTLE GT PRN (23:21)
[2020-03-09] VITALS: BP 175/82
[2020-03-09 00:36] VITALS: BP 135/62
[2020-03-09 04:00] VITALS: BP 149/64
[2020-03-09] MEDS: METOCLOPRAMIDE HCL 10 MG TABLET PO SCH ×3 (04:12→21:53)
[2020-03-09] MEDS: SEVELAMER CARBONATE 800 MG POWD.PACK GT SCH ×3 (04:12→21:53)
[2020-03-09] MEDS: INSULIN NPH, HUMAN ISOPHANE 100 UNIT/ML VIAL SQ SCH ×3 (04:13→22:16)
[2020-03-09] MEDS: PIPERACILLIN /TAZOBACTAM 2.25 G in IV D5W 50 ML IV SCH ×2 (05:06→12:38)
[2020-03-09] MEDS: BLOOD SUGAR DIAGNOSTIC 1 EACH STRIP IN SCH ×4 (05:15→23:40)
[2020-03-09] MEDS: INSULIN REGULAR, HUMAN 100 UNIT/ML 3 ML VIAL SQ PRN ×4 (05:17→23:47)
--- NOTE | 2020-03-09 06:41 | NUR ---
END OF SHIFT REPORT: PT TOLERATED MECH VENT SETTINGS WELL. REMAINS AFEBRILE. NO S/S OF ACTIVE BLEEDING NOTED. TOLERATED GTUBE FEEDS, NEPRO AT 30ML/HR. BIJU MIDLINE IN PLACED, PATENT AND FLUSHING WELL, ON HL, NO S/S OF IV INFILTRATION NOTED. AM CARE AND WOUND CARE PROVIDED TO PT. TELE MONITORING SINUS RHYTHM HR 85. ACCU CHECK PERFORMED Q6HRS, AT 000- 165/3UNITS ADMINISTERED PER SLIDING SCALE, AT 0500 RESULT IS 249/6 UNITS GIVEN PER SLIDING SCALE. PLAN OF CARE: CONTINUE IV ATB, MONITOR GTUBE FEEDS TOLERANCE, HD TODAY, CONTINUE IV DEXAMETHASONE. SAFETY PRECAUTIONS FOR FALL REMAINS ENGAGED, CALL LIGHT IN REACH, WILL ENDORSE TO DAY RN FOR ELLIOT.
--- NOTE | 2020-03-09 07:30 | NUR ---
RN OPENING NOTES RECEIVED PATIENT IN THE BED. TRACHEA/VENT DEPENDENT. NOT IN ANY FORM OF DISTRESS. NO S/S OF PAIN OR DISCOMFORT AT THIS TIME. KEPT HOB ELEVATED FOR ASPIRATION PRECAUTION. ON GTF, RESIDUAL AND PLACEMENT CHECKED. IV ACCESS INTACT AND PATENT.KEPT PATIENT SAFE AND COMFORTABLE. BED IN LOW/LOCKED POSITION. SIDERAILS UPX2,CALL LIGHT IN REACH. WILL CONTINUE TO MONITOR ACCORDINGLY.
[2020-03-09] MEDS: LACOSAMIDE 50 MG TABLET GT SCH ×2 (09:01→21:53)
[2020-03-09] MEDS: VIT B CMPLX 3/FA/VIT C/BIOTIN 1 TAB TABLET GT SCH (09:02)
[2020-03-09] MEDS: AMLODIPINE BESYLATE 10 MG TABLET PO SCH (09:03)
[2020-03-09] MEDS: LINAGLIPTIN 5 MG TABLET PO SCH (09:03)
[2020-03-09] MEDS: LEVETIRACETAM SOL (5 ML) 100 MG/ML UDC GT SCH ×2 (09:03→21:53)
[2020-03-09] MEDS: CHLORHEXIDINE GLUCONATE 15 ML UDC MM SCH (09:03)
[2020-03-09] MEDS: DOCUSATE SODIUM 100 MG CAPSULE PO SCH ×2 (09:03→16:48)
[2020-03-09] MEDS: APIXABAN 2.5 MG TABLET PO SCH ×2 (09:04→16:50)
[2020-03-09] MEDS: Z GUARD REMEDY 2 OZ OINT TP SCH (09:07)
[2020-03-09 16:00] VITALS: BP 147/73
[2020-03-09] MEDS ORDERED: GENTAMICIN 80 MG in IV D5W 50 ML IV ONE (17:00)
[2020-03-09] MEDS ORDERED: VANCOMYCIN 1 GM in IV D5W 250ml IV ONE (18:00)
--- NOTE | 2020-03-09 19:15 | NUR ---
RN CLOSING NOTES PATIENT IN STABLE CONDITION. ALL NEEDS ATTENDED AND PROVIDED. ALL DUE MEDS GIVEN ORDERED. KEPT PATIENT SKIN CLEAN AND DRY. TURNED AND REPOSITIONED EVERY 2HRS AND NEEDED. BED IN LOW/LOCKED POSITION, SIDRAILS UPX2, HOB ELEVATED, CALL LIGHT IN REACH. ENDORSED TO RUDDY LINCOLN ACCORDINGLY
--- NOTE | 2020-03-09 20:00 | NUR ---
FILLER MIXER NOTE: PATIENT RESTING IN BED, NO ACUTE DISTRESS NOTED. BREATHING EVEN AND UNLABORED, NO SOB NOTED. VENT SETTINGS IN PLACE. MIDLINE TO BIJU IN PLACE. AV SHUNT TO CELE IN PLACE, NO BLEEDING NOTED. G-TUBE FEEDING IN PLACE, INFUSING NEPRO AT 30ML/HR, HOB ELEVATED. BED LOCKED AND IN LOWEST POSITION, CALL LIGHT IN REACH. WILL CONTINUE TO MONITOR.
[2020-03-09 20:45] VITALS: BP 152/62
[2020-03-09] MEDS: SENNOSIDES 8.6 MG TABLET GT SCH (21:53)
[2020-03-09] MEDS: DEXAMETHASONE SOD PHOSPHATE 10 MG/ML VIAL IV SCH (21:53)
--- NOTE | 2020-03-09 23:50 | NUR ---
THERAPEUTIC RADIOLOGIST NOTE: PATIENT BLOOD SUGAR LEVEL 212MG/DL, PATIENT TO RECEIVE 6 UNITS OF INSULIN PER SLIDING SCALE. PATIENT RECEIVED 10 UNITS OF NOVOLIN PER MD ORDER. NO S/S OF HYPER/HYPOGLYCEMIA NOTED. WILL CONTINUE TO MONITOR.
[2020-03-10 00:50] VITALS: BP 118/60
[2020-03-10] MEDS: NEPRO 1,000 ML BOTTLE GT PRN (04:14)
[2020-03-10 04:30] VITALS: BP 142/55
[2020-03-10] MEDS: METOCLOPRAMIDE HCL 10 MG TABLET PO SCH ×3 (04:42→21:38)
[2020-03-10] MEDS: SEVELAMER CARBONATE 800 MG POWD.PACK GT SCH ×3 (04:42→21:37)
[2020-03-10] MEDS: BLOOD SUGAR DIAGNOSTIC 1 EACH STRIP IN SCH ×3 (05:40→17:17)
[2020-03-10] MEDS: INSULIN NPH, HUMAN ISOPHANE 100 UNIT/ML VIAL SQ SCH ×3 (05:42→21:39)
[2020-03-10] MEDS: INSULIN REGULAR, HUMAN 100 UNIT/ML 3 ML VIAL SQ PRN (05:43)
[2020-03-10] MEDS ORDERED: VANCOMYCIN 500 MG in IV D5W 100 ML IV PRN (06:00)
--- NOTE | 2020-03-10 06:12 | NUR ---
PIER HAND NOTE: PATIENT RESTING IN BED, NO ACUTE DISTRESS NOTED. BREATHING EVEN AND UNLABORED, NO SOB NOTED. VENT SETTINGS IN PLACE. MIDLINE TO BIJU IN PLACE. AV SHUNT TO CELE IN PLACE, NO BLEEDING NOTED. G-TUBE FEEDING IN PLACE, INFUSING NEPRO AT 30ML/HR, HOB ELEVATED. BLOOD SUGAR LEVEL 259MG/DL, PATIENT TO RECEIVE NOVOLIN 10 UNITS PER MD ORDER AND 9 UNITS PER SLIDING SCALE. NO S/S OF HYPER/HYPOGLYCEMIA NOTED. BED LOCKED AND IN LOWEST POSITION, CALL LIGHT IN REACH. WILL ENDORSE TO DAY NURSE TO CONTINUE WITH PLAN OF CARE.
[2020-03-10 08:00] VITALS: BP 147/68
[2020-03-10] MEDS: CHLORHEXIDINE GLUCONATE 15 ML UDC MM SCH (09:22)
[2020-03-10] MEDS: LEVETIRACETAM SOL (5 ML) 100 MG/ML UDC GT SCH ×2 (09:23→21:38)
[2020-03-10] MEDS: VIT B CMPLX 3/FA/VIT C/BIOTIN 1 TAB TABLET GT SCH (09:23)
[2020-03-10] MEDS: APIXABAN 2.5 MG TABLET PO SCH ×2 (09:23→17:17)
[2020-03-10] MEDS: AMLODIPINE BESYLATE 10 MG TABLET PO SCH (09:24)
[2020-03-10] MEDS: LINAGLIPTIN 5 MG TABLET PO SCH (09:24)
[2020-03-10] MEDS: LACOSAMIDE 50 MG TABLET GT SCH ×2 (09:24→21:38)
[2020-03-10] MEDS: DOCUSATE SODIUM 100 MG CAPSULE PO SCH ×2 (09:24→17:16)
[2020-03-10] MEDS: Z GUARD REMEDY 2 OZ OINT TP SCH (09:24)
--- NOTE | 2020-03-10 09:28 | NUR ---
RN NOTES REPORT GIVEN TO ALLEGRA FOR ELLIOT
--- NOTE | 2020-03-10 09:30 | NUR ---
RN NOTES DUE MEDS GIVEN
[2020-03-10 12:00] VITALS: BP 133/52
[2020-03-10 16:00] VITALS: BP 121/53
[2020-03-10] MEDS ORDERED: LIDOCAINE 1%-EPI 1:100,000 20 ML VIAL TP ONE (16:30)
[2020-03-10] MEDS ORDERED: SILVER NITRATE APPLICATOR 1 EA BOX TP SCH (16:30)
--- NOTE | 2020-03-10 16:33 | NUR ---
CONSENT CONSENT OBTAINED FOR SERIAL DEBRIDEMENT OF SACRAL WOUND FROM MIHIR LEON. VERIFIED WITH ELISA FOX.
--- NOTE | 2020-03-10 18:39 | NUR ---
RN CLOSING NOTES PATIENT IN THE BED. AWAKE. OPENS EYE. NON VERBAL. OBTUNDED. NO CARDIAC OR RESP DISTRESS NOTED. TRACHEA/VENT DEPENDENT. TOLERATRING VENT SETTINGS WELL. NO S/S OF PAIN OR DISCOMFORT AT THIS TIME. KEPT HOB ELEVATED FOR ASPIRATION PRECAUTION. ON GTF, NEPHRO AT 30ML/HR. NO GASTRIC RESIDUAL NOTED. RESIDUAL AND PLACEMENT CHECKED. IV ACCESS INTACT AND PATENT ON R UPPER ARM MIDLINE. NO S/S OF INFECTION AND INFILTRATION NOTED. L UPPER ARM AV SHUNT NOTER. DRESSING CLEAN DRY AND INTACT. PER MATHEW, PT WILL BE DIALYZED TOMORROW. PT WILL ALSO BE HAVING DEBRIDEMENT OF SACRAL WOUND. CONSENT OBTAINED AND PLACED IN CHART. ALL DUE MEDS ADMINISTERED. NO ASE NOTED. KEPT CLEAN AND EMILIA AND COMFORTABLE. SAFETY PRECAUTIONS IN PLCAE. BED IN LOW/LOCKED POSITION. SIDERAILS UPX2,CALL LIGHT IN REACH. WILL CONTINUE TO MONITOR ACCORDINGLY.
--- NOTE | 2020-03-10 19:30 | NUR ---
TELE/RN OPENING NOTES RECEIVED PATIENT IN BED RESTING. PATIENT IS ALERT AND ORIENTED X 0, NON VERBAL OPENS EYES. TELE READING SR 89. PATIENT IS TRACHEA/VENT DEPENDENT, TOLERATING VENT SETTINGS WELL. HOB ELEVATED FOR ASPIRATION PRECAUTION. PATIENT ON GTF, NEPHRO AT 30ML/HR. NO GASTRIC RESIDUAL NOTED. PATIENT HAS IV ACCESS INTACT AND PATENT ON R UPPER ARM MIDLINE. NO S/S OF INFECTION AND INFILTRATION NOTED. L UPPER ARM AV SHUNT NOTED. PER AHMED, PT WILL BE DIALYZED TOMORROW. SAFETY MEASURES ARE IN PLACE, BED IS LOCKED AND PLACED IN THE LOW POSITION, SIDE RAILS UP X 3. WILL CONTINUE TO MONITOR DURING SHIFT.
[2020-03-10 20:00] VITALS: BP 139/68
[2020-03-10] MEDS: DEXAMETHASONE SOD PHOSPHATE 10 MG/ML VIAL IV SCH (21:37)
[2020-03-10] MEDS: SENNOSIDES 8.6 MG TABLET GT SCH (21:37)
[2020-03-11] VITALS: BP 119/55
[2020-03-11] MEDS: BLOOD SUGAR DIAGNOSTIC 1 EACH STRIP IN SCH ×5 (00:18→23:37)
[2020-03-11] MEDS: INSULIN REGULAR, HUMAN 100 UNIT/ML 3 ML VIAL SQ PRN ×4 (00:30→23:38)
[2020-03-11 04:00] VITALS: BP 145/74
[2020-03-11] MEDS: METOCLOPRAMIDE HCL 10 MG TABLET PO SCH ×3 (05:29→21:00)
[2020-03-11] MEDS: SEVELAMER CARBONATE 800 MG POWD.PACK GT SCH ×3 (05:30→21:04)
[2020-03-11] MEDS: INSULIN NPH, HUMAN ISOPHANE 100 UNIT/ML VIAL SQ SCH ×3 (05:32→21:04)
[2020-03-11 06:26] LABS: BASOPHILS % (AUTO) 0.1 % (0.0-2.0); EOSINOPHILS % (AUTO) 0.5 % (0.0-6.0); HEMATOCRIT 27 % (33-45); HEMOGLOBIN 8.3 g/dL (11.5-14.8); LYMPHOCYTES # (AUTO) 0.6 /CMM (0.8-4.8); LYMPHOCYTES % (AUTO) 3.4 % (20.0-44.0); MEAN CORPUSCULAR HGB CONC 31 g/dl (31.0-36.0); MEAN CORPUSCULAR VOLUME 100 fL (82-100); MONOCYTES # (AUTO) 0.5 /CMM (0.1-1.30); MONOCYTES % (AUTO) 2.9 % (2.0-12.0); NEUTROPHILS # (AUTO) 15.3 /CMM (1.8-8.9); NEUTROPHILS % (AUTO) 93.1 % (43.0-81.0); PLATELET COUNT (AUTO) 280 /CMM (150-450); WHITE BLOOD COUNT (AUTO) 16.4 K/uL (4.3-11.0)
[2020-03-11] MEDS: NEPRO 1,000 ML BOTTLE GT PRN ×2 (06:26→12:21)
--- NOTE | 2020-03-11 06:35 | NUR ---
TELE/RN CLOSING NOTES PATIENT IN BED RESTING. PATIENT IS ALERT AND ORIENTED X 0, NON VERBAL OPENS EYES. TELE READING SR 85-89. PATIENT IS TRACH/VENT DEPENDENT, TOLERATING VENT SETTINGS WELL. HOB ELEVATED FOR ASPIRATION PRECAUTION. PATIENT ON G TUBE FEEDING, NEPHRO AT 30ML/HR. NO GASTRIC RESIDUAL NOTED, G TUBE IN PLACE. PATIENT HAS IV ACCESS INTACT AND PATENT ON RIGHT UPPER ARM MIDLINE #18G. LEFT UPPER ARM AV SHUNT NOTED. PER MED, PT WILL BE DIALYZED TODAY. PATIENT SUCTIONED PRN DURING SHIFT. PATIENTS WOUNDS HAVE BEEN CLEAN AND DRESSINGS CHANGED. ALL NEEDS MET. SAFETY MEASURES ARE IN PLACE, BED IS LOCKED AND PLACED IN THE LOW POSITION, SIDE RAILS UP X 3. WILL ENDORSE CARE TO DAY SHIFT.
--- NOTE | 2020-03-11 07:37 | NUR ---
RN NOTES PATIENT IN BED RESTING. PATIENT ALERT, ORIENTED X3. NO SOB OR ACUTE DISTRESS NOTED. MIDLINE INTACT, PATENT. SAFETY MEASURES IN PLACE. WILL CONTINUE TO MONITOR.
[2020-03-11 07:45] LABS: CALCIUM, SERUM 9.6 mg/dL (8.5-10.1); CREATININE 4.5 mg/dL (0.6-1.3); MAGNESIUM 3.3 mg/dL (1.8-2.4); PHOSPHORUS 5.5 mg/dL (2.5-4.9); POTASSIUM 4.2 mmol/L (3.5-5.1)
[2020-03-11 08:00] VITALS: BP 150/72
[2020-03-11] MEDS: LINAGLIPTIN 5 MG TABLET PO SCH (08:19)
[2020-03-11] MEDS: LACOSAMIDE 50 MG TABLET GT SCH ×2 (08:19→21:01)
[2020-03-11] MEDS: VIT B CMPLX 3/FA/VIT C/BIOTIN 1 TAB TABLET GT SCH (08:19)
[2020-03-11] MEDS: LEVETIRACETAM SOL (5 ML) 100 MG/ML UDC GT SCH ×2 (08:19→21:00)
[2020-03-11] MEDS: CHLORHEXIDINE GLUCONATE 15 ML UDC MM SCH (08:20)
[2020-03-11] MEDS: APIXABAN 2.5 MG TABLET PO SCH ×2 (08:20→16:12)
[2020-03-11] MEDS: Z GUARD REMEDY 2 OZ OINT TP SCH (08:21)
[2020-03-11] MEDS: AMLODIPINE BESYLATE 10 MG TABLET PO SCH (08:21)
[2020-03-11 08:32] LABS: LYMPHOCYTES % (MANUAL) 3 % (16-48); MONOCYTES % (MANUAL) 5 % (0-11.0); NEUTROPHILS % (MANUAL) 92 (42-76)
[2020-03-11] MEDS: DOCUSATE SODIUM LIQ 100 MG/10 ML UDC GT SCH ×2 (10:18→16:11)
[2020-03-11 12:00] VITALS: BP 125/52
[2020-03-11 16:00] VITALS: BP 128/54
--- NOTE | 2020-03-11 16:12 | NUR ---
MS RN NOTES HELD ELIQUID SINCE PATIENT IS S/P DEBRIDEMENT TODAY. AWARE.
--- NOTE | 2020-03-11 18:09 | NUR ---
RT NOTE PT REMAINS MECHANICALLY VENTILATED VIA CUFFED TRACHEOSTOMY TUBE. CUFF INFLATED. TRACH TUBE MIDLINE AND SECURE. VENTILATOR SETTINGS PRESCRIBED. ALARMS SET PER PROTOCOL AND AUDIBLE. VENT PLUGGED IN TO RED OUTLET. AMBU BAG AT BED SIDE. NO DISTRESS NOTED. Addendum: 03/11/20 at 1810 by SYBIL MARTINEZ RT Amended: Links added.
--- NOTE | 2020-03-11 18:53 | NUR ---
MS RN NOTES PATIENT IN BED RESTING NO SOB OR ACUTE DISTRESS NOTED. NO ACUTE CHANGES NOTED DURING SHIFT. ALL DUE MEDICATIONS ADMINISTERED. ALL NEEDS MET. WILL ENDORSE CARE TO PM SHIFT.
--- NOTE | 2020-03-11 19:10 | NUR ---
TELE/RN OPENING NOTES RECEIVED PATIENT IN BED RESTING. PATIENT NON VERBAL OPENS EYES. TELE READING SR 89. PATIENT IS TRACH/VENT DEPENDENT, TOLERATING VENT SETTINGS ORDERED SPO2 98%. HOB ELEVATED FOR ASPIRATION PRECAUTION. PATIENT ON GTF, NEPHRO AT 35ML/HR. NO GASTRIC RESIDUAL NOTED. PATIENT HAS IV ACCESS INTACT AND PATENT ON R UPPER ARM MIDLINE. NO S/S OF INFECTION AND INFILTRATION NOTED. L UPPER ARM AV SHUNT NOTED. SAFETY MEASURES ARE IN PLACE, BED IS LOCKED AND PLACED IN THE LOW POSITION, SIDE RAILS UP X 3. WILL CONTINUE TO MONITOR DURING SHIFT.
--- NOTE | 2020-03-11 19:15 | NUR ---
RN NOTES MAY GIVE GENTAMICIN IV AFTER HD EVEN GENTAMICIN TROUGH IS 2.2 PER AM SHIFT NURSE ENDORSEMENT Addendum: 03/12/20 at 0109 by BYRON SOARES RN AM SHIFT NURSE IS MS MCARTHUR
[2020-03-11 20:00] VITALS: BP 185/85
[2020-03-11] MEDS: DAKINS QUARTER STRENGTH (0.125%) 480 ML BOTTLE TOP SCH (21:00)
[2020-03-11] MEDS: DEXAMETHASONE SOD PHOSPHATE 10 MG/ML VIAL IV SCH (21:01)
[2020-03-11] MEDS: SENNOSIDES 8.6 MG TABLET GT SCH (21:01)
[2020-03-11] MEDS: hydrALAZINE HCL IV 20 MG VIAL IV PRN (21:14)
--- NOTE | 2020-03-11 22:30 | NUR ---
RN NOTES PT COMPLETED 3HRS HD WITH LATEST V/S BP 106/62 HR 85 RR 15 TEMP 98.1 SPO2 98% PT AWAKE NO SIGN AND SYMPTOMS OF DIALYSIS SIDE EFFECT, WILL CONT TO MONITOR
[2020-03-11] MEDS: GENTAMICIN 80 MG in IV D5W 50 ML IV PRN (22:50)
[2020-03-12] VITALS: BP 132/43
[2020-03-12 04:00] VITALS: BP 156/65
[2020-03-12] MEDS: BLOOD SUGAR DIAGNOSTIC 1 EACH STRIP IN SCH ×3 (06:02→17:51)
[2020-03-12] MEDS: INSULIN REGULAR, HUMAN 100 UNIT/ML 3 ML VIAL SQ PRN ×3 (06:03→18:02)
[2020-03-12] MEDS: METOCLOPRAMIDE HCL 10 MG TABLET PO SCH ×3 (06:04→22:32)
[2020-03-12] MEDS: SEVELAMER CARBONATE 800 MG POWD.PACK GT SCH ×3 (06:05→22:34)
[2020-03-12] MEDS: INSULIN NPH, HUMAN ISOPHANE 100 UNIT/ML VIAL SQ SCH ×3 (06:07→23:00)
--- NOTE | 2020-03-12 07:02 | NUR ---
RN CLOSING NOTES PT ON BED ASLEEP, ON TRACH/VENT SETTING ORDERED WITH SPO2 98% TELE MONITOR READS CONTROLLED AFIB WITH OCCASIONAL A FLUTTER,S NO SIGNIFICANT CHANGES ON CONDITION NOTED, WOUND CARE TREATMENT DONE ORDERED ALL NEEDS ATTENDED SAFETY MEASURE MAINTAINED BED ON LOWEST POSITION AND LOCKED SIDE RAILS UP CALL LIGHT WITHIN REACH WILL ENDORSED TO AM SHIFT NURSE
[2020-03-12] MEDS: ACETAMINOPHEN 650 MG/20.3 ML UDC GT PRN (07:52)
[2020-03-12 08:00] VITALS: BP 133/72
--- NOTE | 2020-03-12 08:05 | NUR ---
WAREHOUSE INVENTORY CLERK NOTE: PT RECEIVED EYES OPEN, NON-VERBAL. ON PRESCRIBED VENT SETTINGS: SMILEY 6, AC 12, TV 500, FIO2 45%, PEEP 5. PT LAST HD 03/11, 700 ML REMOVED. PT O2 SATURATION 99%. PT HAS TEMPERATURE OF 100.5, COOLING MEASURES IMPLEMENTED. PT HAS BIJU MIDLINE, PATENT AND INTACT, NO SIGNS OF INFILTRATION. PT HAD SACRAL DEEP TISSUE INJURY, WITH SURGICAL DEBRIDEMENT 03/11. PT HAS NEPHRO IN G-TUBE RUNNING @ 35ML/HR. ALL SAFETY MEASURES IMPLEMENTED. BED IN LOWEST LOCKED POSITION. WILL CONTINUE TO MONITOR.
[2020-03-12] MEDS: CHLORHEXIDINE GLUCONATE 15 ML UDC MM SCH (09:13)
[2020-03-12] MEDS: LACOSAMIDE 50 MG TABLET GT SCH ×2 (09:14→22:33)
[2020-03-12] MEDS: LEVETIRACETAM SOL (5 ML) 100 MG/ML UDC GT SCH ×2 (09:14→22:40)
[2020-03-12] MEDS: VIT B CMPLX 3/FA/VIT C/BIOTIN 1 TAB TABLET GT SCH (09:14)
[2020-03-12] MEDS: LINAGLIPTIN 5 MG TABLET PO SCH (09:15)
[2020-03-12] MEDS: APIXABAN 2.5 MG TABLET PO SCH ×2 (09:16→17:50)
[2020-03-12] MEDS: AMLODIPINE BESYLATE 10 MG TABLET PO SCH (09:16)
[2020-03-12] MEDS: DOCUSATE SODIUM LIQ 100 MG/10 ML UDC GT SCH ×2 (09:20→17:49)
[2020-03-12] MEDS: Z GUARD REMEDY 2 OZ OINT TP SCH (09:21)
[2020-03-12] MEDS: DAKINS QUARTER STRENGTH (0.125%) 480 ML BOTTLE TOP SCH (09:34)
[2020-03-12 12:00] VITALS: BP 150/72
[2020-03-12 16:00] VITALS: BP 140/76
[2020-03-12] MEDS ORDERED: VANCOMYCIN 500 MG in IV D5W 100 ML IV PRN (19:30)
[2020-03-12 20:00] VITALS: BP 142/68
[2020-03-12] MEDS ORDERED: VANCOMYCIN 500 MG in IV D5W 100 ML IV ONE (20:30)
[2020-03-12] MEDS: SENNOSIDES 8.6 MG TABLET GT SCH (22:31)
[2020-03-12] MEDS: DEXAMETHASONE SOD PHOSPHATE 10 MG/ML VIAL IV SCH (22:41)
--- NOTE | 2020-03-12 23:12 | NUR ---
RT NOTE [facility]. Pt shows no signs of resp distress or sob. Trach is patent and secured. pt sx'd for mod amt of pale yellow secretions. Vent plugged into red outlet. Ambu bag and emergency spare trach bedside. Alarms are set and audible. Will continue to monitor. Addendum: 03/12/20 at 2313 by FLOR VILLA RT Amended: Links added.
[2020-03-13] VITALS: BP 122/77
[2020-03-13] MEDS: INSULIN REGULAR, HUMAN 100 UNIT/ML 3 ML VIAL SQ PRN ×4 (00:15→22:40)
[2020-03-13] MEDS: BLOOD SUGAR DIAGNOSTIC 1 EACH STRIP IN SCH ×5 (00:18→22:41)
[2020-03-13 04:00] VITALS: BP 137/69
--- NOTE | 2020-03-13 04:53 | NUR ---
RN notes Patient in bed with no distress noted. Breathing even and unlabored. Vent setting well tolerated. Suctioned small to moderate amount of yellowish whitish secretion thin secretion. No physical manifestation of pain. Vital signs wnl. No significant change of condition. Obtunded, non verbal. Kept clean and dry. Will endorse to next shift for continuity of care.
[2020-03-13] MEDS: SEVELAMER CARBONATE 800 MG POWD.PACK GT SCH ×3 (05:19→22:04)
[2020-03-13] MEDS: METOCLOPRAMIDE HCL 10 MG TABLET PO SCH ×3 (05:20→22:11)
[2020-03-13] MEDS: INSULIN NPH, HUMAN ISOPHANE 100 UNIT/ML VIAL SQ SCH ×3 (05:35→22:25)
--- NOTE | 2020-03-13 07:00 | NUR ---
BLENDING TANK TENDER NOTE: PT RECEIVED EYES OPEN, NON-VERBAL. ON PRESCRIBED VENT SETTINGS: SMILEY 6, AC 12, TV 500, FIO2 45%, PEEP 5. PT LAST HD 03/13 300 ML / HR . PT O2 SATURATION 99%. PT HAS TEMPERATURE OF 100.5, COOLING MEASURES IMPLEMENTED. PT HAS BIJU MIDLINE, PATENT AND INTACT, NO SIGNS OF INFILTRATION. PT HAD SACRAL DEEP TISSUE INJURY, WITH SURGICAL DEBRIDEMENT 03/11. PT HAS NEPHRO IN G-TUBE RUNNING @ 35ML/HR. ALL SAFETY MEASURES IMPLEMENTED. BED IN LOWEST LOCKED POSITION.
[2020-03-13 07:14] LABS: BASOPHILS % (AUTO) 0.1 % (0.0-2.0); EOSINOPHILS % (AUTO) 0.1 % (0.0-6.0); HEMATOCRIT 23 % (33-45); LYMPHOCYTES # (AUTO) 0.4 /CMM (0.8-4.8); LYMPHOCYTES % (AUTO) 2.7 % (20.0-44.0); MEAN CORPUSCULAR HGB CONC 31 g/dl (31.0-36.0); MEAN CORPUSCULAR VOLUME 103 fL (82-100); MONOCYTES # (AUTO) 0.4 /CMM (0.1-1.30); MONOCYTES % (AUTO) 2.5 % (2.0-12.0); NEUTROPHILS # (AUTO) 14.8 /CMM (1.8-8.9); NEUTROPHILS % (AUTO) 94.6 % (43.0-81.0); PLATELET COUNT (AUTO) 269 /CMM (150-450); RED BLOOD CELL COUNT(AUTO) 2.23 MIL/uL (4.0-5.2); WHITE BLOOD COUNT (AUTO) 15.6 K/uL (4.3-11.0)
[2020-03-13 07:47] LABS: CALCIUM, SERUM 9.6 mg/dL (8.5-10.1); CREATININE 3.8 mg/dL (0.6-1.3); MAGNESIUM 3.1 mg/dL (1.8-2.4); PHOSPHORUS 4.3 mg/dL (2.5-4.9); POTASSIUM 4.6 mmol/L (3.5-5.1)
[2020-03-13 08:00] VITALS: BP_SYST 122; BP_SYST 144; BP_DIAS 69; BP_DIAS 77
[2020-03-13] MEDS: DOCUSATE SODIUM LIQ 100 MG/10 ML UDC GT SCH ×2 (10:35→17:37)
[2020-03-13] MEDS: LEVETIRACETAM SOL (5 ML) 100 MG/ML UDC GT SCH ×2 (10:35→22:05)
[2020-03-13] MEDS: CHLORHEXIDINE GLUCONATE 15 ML UDC MM SCH (10:36)
[2020-03-13] MEDS: VIT B CMPLX 3/FA/VIT C/BIOTIN 1 TAB TABLET GT SCH (10:36)
[2020-03-13] MEDS: LACOSAMIDE 50 MG TABLET GT SCH ×2 (10:36→22:06)
[2020-03-13] MEDS: APIXABAN 2.5 MG TABLET PO SCH ×2 (10:37→17:39)
[2020-03-13] MEDS: DAKINS QUARTER STRENGTH (0.125%) 480 ML BOTTLE TOP SCH (10:42)
[2020-03-13] MEDS: AMLODIPINE BESYLATE 10 MG TABLET PO SCH (10:42)
[2020-03-13] MEDS: LINAGLIPTIN 5 MG TABLET PO SCH (10:42)
[2020-03-13] MEDS: Z GUARD REMEDY 2 OZ OINT TP SCH (10:43)
[2020-03-13 12:00] VITALS: BP_SYST 142; BP_SYST 148; BP_DIAS 64; BP_DIAS 68
[2020-03-13 13:27] LABS: LYMPHOCYTES % (MANUAL) 1 % (16-48); MONOCYTES % (MANUAL) 2 % (0-11.0); NEUTROPHILS % (MANUAL) 97 (42-76)
[2020-03-13] MEDS ORDERED: EPOETIN ALFA (10,000 UNIT) 10,000 UNIT/ML VIAL IV ONE (15:00)
[2020-03-13 16:00] VITALS: BP 137/69
--- NOTE | 2020-03-13 16:00 | NUR ---
PATTERNMAKER APPRENTICE METAL HD- 300 ML OUT
--- NOTE | 2020-03-13 19:50 | NUR ---
IT DISASTER RECOVERY MANAGER 1 PT REMAINS NON-VERBAL WITH EYES OPEN. ON PRESCRIBED VENT AND TRACH SETTINGS: SMILEY 6, AC 12, TV 500, FI02 45%, PEEP 5. NO RESPIRATORY DISTRESS OR SOB. G-TUBE INTACT WITH MINIMAL RESIDUAL. CURRENTLY RUNNING NEPHRO @ 35 ML/HOUR. PT HAS BIJU MIDLINE, INTACT AND FLUSHED WELL, NO SIGNS ON INFILTRATION OR INFECTION. PT HAS SACRAL DTI, ALL WOUND CARE TX COMPLETED. PT TURNED Q2. ALL MEDICATIONS GIVEN. BED IN LOCKED LOWEST POSITION. ALL SAFETY MEASURES IMPLEMENTED. HOB ELEVATED 30 DEGREES. CALL LIGHT WITHIN REACH. REPORT GIVEN TO ONCOMING RN FOR ELLIOT.
[2020-03-13 20:00] VITALS: BP 126/62
[2020-03-13] MEDS: SENNOSIDES 8.6 MG TABLET GT SCH (22:06)
[2020-03-13] MEDS: DEXAMETHASONE SOD PHOSPHATE 10 MG/ML VIAL IV SCH (22:15)
[2020-03-14] VITALS (15 sets, daily range): BP systolic 116–166; BP diastolic 59–85
--- NOTE | 2020-03-14 01:14 | NUR ---
RN OPENING NOTE RECEIVED PATIENT IN BED, OBTUNDED. PATIENT IN NO S/SX OF ACUTE DISTRESS AT THIS TIME, WITH TRACH CONNECTED TO MECHANICAL VENT WITH SETTINGS PRESCRIBED. PATIENT'S BREATHING IS EVEN AND UNLABORED, SATURATING AT 100%, SR ON THE MONITOR, HR IS 83. NOTED BIJU MIDLINE, PATENT AND FLUSHING WELL , NO S/S OF INFECTION OR INFILTRATION. NOTED PRESSURE ULCER AT SACRAL AREA, WOUND DRESSING INTACT. WOUND TREATMENT DONE PER ORDERS. SAFETY MEASURES IMPLEMENTED PER PROTOCOL. PATIENT BED ALARM IS ON. HEAD OF BED ELEVATED. BED IS LOCKED, IN LOWEST POSITION AND SIDE RAILS UP. CALL LIGHT WITHIN REACH OF THE PATIENT. WILL CONTINUE TO MONITOR AND REASSESS FOR ANY CHANGES. LATEST TEMP 98.6. EXPORT ADMINISTRATOR MADE AWARE, ADVISED TO PROCEED WITH BLOOD TRANSFUSION. Addendum: 03/15/20 at 0118 by YUSUF MELGAR RN ENTERED IN ERROR, WRONG TIME. CORRECT TIME IS 03/14/20201929
--- NOTE | 2020-03-14 03:37 | NUR ---
RN notes In bed, resting comfortably with eyes open but no tracking. No distress noted. breathing even and unlabored. Vent setting well tolerated. No significant change of condition. No physical manifestation of pain or discomfort. Kept clean and dry. Will endorse to next shift for continuity of care.
--- NOTE | 2020-03-14 03:44 | NUR ---
RT NOTE [facility]. Pt shows no signs of resp distress or sob. Trach is patent and secured. pt sx'd for mod amt of pale yellow secretions. Vent plugged into red outlet. Ambu bag and emergency spare trach bedside. Alarms are set and audible. Will continue to monitor. Addendum: 03/14/20 at 0344 by FLOR VILLA RT Amended: Links added.
[2020-03-14] MEDS: SEVELAMER CARBONATE 800 MG POWD.PACK GT SCH ×3 (05:36→20:51)
[2020-03-14] MEDS: METOCLOPRAMIDE HCL 10 MG TABLET PO SCH ×3 (05:37→20:52)
[2020-03-14] MEDS: INSULIN REGULAR, HUMAN 100 UNIT/ML 3 ML VIAL SQ PRN ×2 (05:58→13:07)
[2020-03-14] MEDS: INSULIN NPH, HUMAN ISOPHANE 100 UNIT/ML VIAL SQ SCH ×3 (05:59→21:26)
[2020-03-14] MEDS: BLOOD SUGAR DIAGNOSTIC 1 EACH STRIP IN SCH ×3 (06:03→18:01)
[2020-03-14 07:20] LABS: CALCIUM, SERUM 9.2 mg/dL (8.5-10.1); CREATININE 2.8 mg/dL (0.6-1.3); MAGNESIUM 2.8 mg/dL (1.8-2.4); PHOSPHORUS 3.2 mg/dL (2.5-4.9); POTASSIUM 4.2 mmol/L (3.5-5.1)
[2020-03-14] MEDS: CHLORHEXIDINE GLUCONATE 15 ML UDC MM SCH (09:00)
[2020-03-14] MEDS: APIXABAN 2.5 MG TABLET PO SCH ×2 (09:00→17:00)
[2020-03-14] MEDS: DAKINS QUARTER STRENGTH (0.125%) 480 ML BOTTLE TOP SCH (09:00)
[2020-03-14] MEDS: Z GUARD REMEDY 2 OZ OINT TP SCH (09:00)
[2020-03-14] MEDS: LACOSAMIDE 50 MG TABLET GT SCH ×2 (09:00→20:51)
--- NOTE | 2020-03-14 10:00 | NUR ---
MAX HELD DUE TO VERY LOW HGB
--- NOTE | 2020-03-14 10:30 | NUR ---
CALLED PHARMACY TWO TIMES TO BRING VAMPAT. MCCORMICK OF PATIENT'S MEDICATIONS LOADED IN PIXES ON THE FLOOR
--- NOTE | 2020-03-14 11:00 | NUR ---
LAB CALLED AT 0750 AND REPORTED HGB 5.3. THEY SAID THAT THEY WILL REPEAT THE DRAW. LAB REDRAWN AND HGB STILL 5.3. THEY SAID THAT BLOOD WAS DRAWN BELOW THE PICC LINE AND POSSIBLY IT AFFECTED THE VALUE. DR. SOUSA NOTIFIED AND ORDERED TO REPEAT DRAW AND IF HGB BELOW 7 TO TRANSFUSE 1 UNIT OF BLOOD. RESULTS FROM PICC LINE WAS 4.3. DR ORDERED TO TRANSFUSE 2 UNITS OF RBC
[2020-03-14] MEDS: LEVETIRACETAM SOL (5 ML) 100 MG/ML UDC GT SCH ×2 (11:30→20:51)
[2020-03-14] MEDS: DOCUSATE SODIUM LIQ 100 MG/10 ML UDC GT SCH ×2 (11:30→18:35)
[2020-03-14] MEDS: AMLODIPINE BESYLATE 10 MG TABLET PO SCH (11:30)
[2020-03-14] MEDS: LINAGLIPTIN 5 MG TABLET PO SCH (11:30)
[2020-03-14] MEDS: VIT B CMPLX 3/FA/VIT C/BIOTIN 1 TAB TABLET GT SCH (11:31)
[2020-03-14 11:38] LABS: HEMOGLOBIN 4.3 g/dL (11.5-14.8)
[2020-03-14] MEDS ORDERED: VANCOMYCIN 1 GM in IV D5W 250ml IV ONE (12:00)
--- NOTE | 2020-03-14 14:00 | NUR ---
RECEIVED A CALL FROM THE BLOOD BANK THAT BLOOD READY
[2020-03-14] MEDS: ACETAMINOPHEN 650 MG/20.3 ML UDC GT PRN ×2 (14:02→18:36)
--- NOTE | 2020-03-14 14:10 | NUR ---
patient's temp 100.1 TYLENOL ADMINISTERED 650 MH GT
[2020-03-14] MEDS: GENTAMICIN 80 MG in IV D5W 50 ML IV PRN (14:43)
--- NOTE | 2020-03-14 15:10 | NUR ---
TEMPERATURE RE-CHECKED AND 100.2 DR. SOUSA CONTACTED TO GET AN EXTRA DOSE OF TYLENOL ORDER 650 MG GT X 1 TIME GIVEN AND EXECUTED BLOOD TRANSFUSION STILL ON HOLD DUE TO INCREASED TEMP
[2020-03-14] MEDS ORDERED: ACETAMINOPHEN 650 MG/20.3 ML UDC GT ONE (15:30)
--- NOTE | 2020-03-14 16:30 | NUR ---
TEMPERATURE RECHECKED AND 99.6 BLOOD TRANSFUSION ON HOLD AND ANOTHER DOSE OF TYLENOL WILL BE ADMINISTERED SCHEDULED DRESSING CHANGED ON SACRUM. PATIENT APEARS IN NO DISTRESS, NSR ON MONITOR
--- NOTE | 2020-03-14 17:00 | NUR ---
DR. SOUSA ORDERED TO HOLD ELIQUIS DUE TO HGB 4.3
--- NOTE | 2020-03-14 18:49 | NUR ---
temp rechecked and 99.4 tylenol 650mg administered as prescribed
--- NOTE | 2020-03-14 19:30 | NUR ---
RN OPENING NOTE RECEIVED PATIENT IN BED, OBTUNDED. PATIENT IN NO S/SX OF ACUTE DISTRESS AT THIS TIME, WITH TRACH CONNECTED TO MECHANICAL VENT WITH SETTINGS PRESCRIBED. PATIENT'S BREATHING IS EVEN AND UNLABORED, SATURATING AT 100%, SR ON THE MONITOR, HR IS 83. GTUBE INTACT, MINIMAL RESIDUAL NOTED, PLACEMENT CHECKED, NOTED PRESENCE OF GASTRIC CONTENTS ON ASPIRATION AND GURLING SOUND ON AUSCULTATION. NOTED BIJU MIDLINE, PATENT AND FLUSHING WELL , NO S/S OF INFECTION OR INFILTRATION. NOTED PRESSURE ULCER AT SACRAL AREA, WOUND DRESSING INTACT. WOUND TREATMENT DONE PER ORDERS. SAFETY MEASURES IMPLEMENTED PER PROTOCOL. PATIENT BED ALARM IS ON. HEAD OF BED ELEVATED. BED IS LOCKED, IN LOWEST POSITION AND SIDE RAILS UP. CALL LIGHT WITHIN REACH OF THE PATIENT. WILL CONTINUE TO MONITOR AND REASSESS FOR ANY CHANGES. LATEST TEMP 98.6. MATCHER OPERATOR MADE AWARE, ADVISED TO PROCEED WITH BLOOD TRANSFUSION OF 2 BAGS LRBC PER ORDERS.
--- NOTE | 2020-03-14 20:25 | NUR ---
RN NOTE BLOOD TRANSFUSION OF 2 UNITS PRBC STARTED AT 1955, VERIFIED AND CO-SIGNED BY MIKE FOX. VITALS REMAINS STABLE, NO TRANSFUSION REACTION NOTED AT 2009, AND 2024. WILL CONT TO MONITOR.
[2020-03-14] MEDS: SENNOSIDES 8.6 MG TABLET GT SCH (21:27)
[2020-03-15] VITALS (10 sets, daily range): BP systolic 132–155; BP diastolic 66–94
[2020-03-15] MEDS: BLOOD SUGAR DIAGNOSTIC 1 EACH STRIP IN SCH ×4 (01:42→17:15)
[2020-03-15] MEDS: METOCLOPRAMIDE HCL 10 MG TABLET PO SCH ×3 (04:16→21:26)
[2020-03-15] MEDS: SEVELAMER CARBONATE 800 MG POWD.PACK GT SCH ×3 (04:17→21:26)
[2020-03-15] MEDS: INSULIN NPH, HUMAN ISOPHANE 100 UNIT/ML VIAL SQ SCH ×3 (05:10→21:50)
--- NOTE | 2020-03-15 07:02 | NUR ---
RN CLOSING NOTE PATIENT REMAINS IN ROOM RESTING COMFORTABLY. NO SIGNS OF RESPIRATORY DISTRESS, ON TRACH CONNECTED TO MECH VENT WITH PRESCRIBED SETTINGS, TOLERATTING WELL SATURATING AT 100%. GTUBE INTACT WITH NEPRO REGULATED AT 35 ML/HR, HOB ELEVATION MAINATINED, ASPIRATION PRECAUTIONS OBSERVED AT ALL TIMES. PATIENT IS CLEAN , DRY AND COMFORTABLE THROUGHOUT THE SHIFT. ALL DUE MEDS ADMINISTERED ORDERED; PATIENT TOLERATED WELL. SAFETY MEASURES IMPLEMENTED PER PROTOCOL. LATEST TEMP 98.9. ENDORSED TO ARLENE FOX FOR CONTINUATION OF CARE.
[2020-03-15 07:38] LABS: BASOPHILS # (AUTO) 0.1 /CMM (0.0-0.2); BASOPHILS % (AUTO) 0.3 % (0.0-2.0); EOSINOPHILS % (AUTO) 0.8 % (0.0-6.0); HEMATOCRIT 22 % (33-45); HEMOGLOBIN 7.3 g/dL (11.5-14.8); LYMPHOCYTES # (AUTO) 0.4 /CMM (0.8-4.8); LYMPHOCYTES % (AUTO) 1.8 % (20.0-44.0); MEAN CORPUSCULAR HGB CONC 33 g/dl (31.0-36.0); MEAN CORPUSCULAR VOLUME 95 fL (82-100); MONOCYTES # (AUTO) 0.7 /CMM (0.1-1.30); MONOCYTES % (AUTO) 3.8 % (2.0-12.0); NEUTROPHILS # (AUTO) 18.4 /CMM (1.8-8.9); NEUTROPHILS % (AUTO) 93.3 % (43.0-81.0); PLATELET COUNT (AUTO) 232 /CMM (150-450); RED BLOOD CELL COUNT(AUTO) 2.34 MIL/uL (4.0-5.2); WHITE BLOOD COUNT (AUTO) 19.7 K/uL (4.3-11.0)
[2020-03-15 07:55] LABS: CALCIUM, SERUM 9.5 mg/dL (8.5-10.1); CREATININE 3.4 mg/dL (0.6-1.3); MAGNESIUM 2.9 mg/dL (1.8-2.4); POTASSIUM 4.7 mmol/L (3.5-5.1)
[2020-03-15] MEDS: NEPRO 1,000 ML BOTTLE GT PRN (08:59)
[2020-03-15] MEDS: LINAGLIPTIN 5 MG TABLET PO SCH (09:00)
[2020-03-15] MEDS: LEVETIRACETAM SOL (5 ML) 100 MG/ML UDC GT SCH ×2 (09:00→21:25)
[2020-03-15] MEDS: VIT B CMPLX 3/FA/VIT C/BIOTIN 1 TAB TABLET GT SCH (09:00)
[2020-03-15] MEDS: LACOSAMIDE 50 MG TABLET GT SCH ×2 (09:00→21:26)
[2020-03-15] MEDS: CHLORHEXIDINE GLUCONATE 15 ML UDC MM SCH (09:00)
[2020-03-15] MEDS: DOCUSATE SODIUM LIQ 100 MG/10 ML UDC GT SCH ×2 (09:00→16:12)
[2020-03-15] MEDS: Z GUARD REMEDY 2 OZ OINT TP SCH (09:01)
[2020-03-15] MEDS: DAKINS QUARTER STRENGTH (0.125%) 480 ML BOTTLE TOP SCH (09:01)
[2020-03-15] MEDS: AMLODIPINE BESYLATE 10 MG TABLET PO SCH (09:01)
[2020-03-15] MEDS: APIXABAN 2.5 MG TABLET PO SCH (09:15)
--- NOTE | 2020-03-15 10:42 | NUR ---
Lab called in stated that gentamicin trough 4.7 and vancomycin level is 26 Dr.H petersen and pharmacy nitified at this time
[2020-03-15] MEDS ORDERED: PANTOPRAZOLE 40 MG VIAL IV SCH (11:00)
[2020-03-15] MEDS: ACETAMINOPHEN 650 MG/20.3 ML UDC GT PRN (15:49)
[2020-03-15] MEDS: INSULIN REGULAR, HUMAN 100 UNIT/ML 3 ML VIAL SQ PRN (17:40)
--- NOTE | 2020-03-15 19:20 | NUR ---
BELT SEWER OPENING NOTES: RECEIVED PATIENT IN BED, NO S/S OF DISTRESS NOTED. NOT IN PAIN. NOT MOANING. PATIENT IS CALM AND APPEARS COMFORTABLE. BED IN LOWEST AND LOCKED POSITION. HOB ELEVATED AT ALL TIMES. WITH GT FEEDING NEPRO AT 35ML/HOUR.
[2020-03-15] MEDS: SENNOSIDES 8.6 MG TABLET GT SCH (21:26)
[2020-03-15] MEDS: VANCOMYCIN 500 MG in IV D5W 100 ML IV PRN (21:59)
[2020-03-15] MEDS: GENTAMICIN 80 MG in IV D5W 50 ML IV PRN (22:04)
[2020-03-15] MEDS: METRONIDAZOLE 500 MG TABLET PO SCH (22:10)
[2020-03-16] VITALS (14 sets, daily range): BP systolic 140–169; BP diastolic 64–77
--- NOTE | 2020-03-16 00:29 | NUR ---
BLOOD SUGAR CHECKED=88, NO INSULIN GIVEN PER SLIDING SCALE.
[2020-03-16] MEDS: METOCLOPRAMIDE HCL 10 MG TABLET PO SCH ×3 (05:43→20:20)
[2020-03-16] MEDS: SEVELAMER CARBONATE 800 MG POWD.PACK GT SCH ×3 (05:43→20:19)
[2020-03-16] MEDS: METRONIDAZOLE 500 MG TABLET PO SCH ×3 (05:46→20:20)
[2020-03-16] MEDS: BLOOD SUGAR DIAGNOSTIC 1 EACH STRIP IN SCH ×5 (06:00→23:12)
--- NOTE | 2020-03-16 06:00 | NUR ---
COMPENSATION AND BENEFITS ADVISOR CLOSING NOTES: PATIENT IN BED, OBTUNDED, NO S/S OF DISTRESS NOTED. BED IN LOWEST AND LOCKED POSITION. HOB ELEVATED AT ALL TIMES. WITH GT FEEDING RUNNING AT 35ML/HOUR, NO RESIDUALS NOTED. DRESSING ON THE G-TUBE SITE CHANGED, NO SKIN IRRITATIONS NOTED AND NO LEAKING. G-TUBE INTACT. HAD BM LAST NIGHT,LARGE AMOUNT,BROWNISH COLOR, VERY SOFT, AND HAD ONE AGAIN THIS MORNING, VERY SMALL AMOUNT. SACRAL WOUND TREATMENT DONE LAST NIGHT.OFFLOADED, AND TURNED AND REPOSITIONED DURING THE SHIFT.
[2020-03-16] MEDS: INSULIN NPH, HUMAN ISOPHANE 100 UNIT/ML VIAL SQ SCH ×3 (06:09→20:35)
--- NOTE | 2020-03-16 06:10 | NUR ---
blood sugar gocozat=047, no regular insulin given.
[2020-03-16 06:46] LABS: BASOPHILS # (AUTO) 0.1 /CMM (0.0-0.2); BASOPHILS % (AUTO) 0.4 % (0.0-2.0); EOSINOPHILS % (AUTO) 1.2 % (0.0-6.0); LYMPHOCYTES # (AUTO) 0.4 /CMM (0.8-4.8); MEAN CORPUSCULAR HGB CONC 33 g/dl (31.0-36.0); MEAN CORPUSCULAR VOLUME 96 fL (82-100); MONOCYTES # (AUTO) 0.6 /CMM (0.1-1.30); MONOCYTES % (AUTO) 5.1 % (2.0-12.0); NEUTROPHILS # (AUTO) 11.3 /CMM (1.8-8.9); NEUTROPHILS % (AUTO) 90.3 % (43.0-81.0); PLATELET COUNT (AUTO) 249 /CMM (150-450); RED BLOOD CELL COUNT(AUTO) 2.04 MIL/uL (4.0-5.2); WHITE BLOOD COUNT (AUTO) 12.6 K/uL (4.3-11.0)
--- NOTE | 2020-03-16 07:10 | NUR ---
PT ASLEEP IN BED WITH HOB ELEVATED. OBTUNDED BUT OPENS EYES AT RANDOM INTERVALS. VENT SETTINGS PRESCRIBED. TOLERATING WILL WITH SPO2 99-100%. SR ON TELE IN 80-90S. ANURIC. BED BOUND. PATENT SACRAL DRESSING. TF NEPHRO AT 35 ML/HR. NO RESIDUAL. AUSCULTATED FOR PLACEMENT. BIJU MIDLINE FLUSHED AND PATENT. DRESSING DRY AND INTACT. CELE AV SHUNT INTACT. EXTREMITIES OFFLOADED. WILL TURN Q2H. HOB ELEVATED, BED LOW, LOCKED, RAILS UP X2, ALL HOSPITAL POLICY SAFETY PRECAUTIONS IMPLEMENTED.
--- NOTE | 2020-03-16 07:10 | NUR ---
PT AWAKE AND ALERT. HOB ELEVATED. ROOM AIR AND TOLERATING WELL. REFUSES NC. SAO2 97%. A/OX4. SKIN WARM AND FLUSHED. SR ON TELE. AMBULATORY AND SKIN INTACT. RAC FLUSHED. PATENT. DRESSING DRY AND INTACT. HOB ELEVATED, BED LOW, LOCKED, CALL LIGHT IN REACH, RAILS UP X2, NON SLIP SOCKS ON, ALL HOSPITAL POLICY SAFETY PRECAUTIONS IMPLEMENTED. Addendum: 03/16/20 at 1014 by DI RODRÍGUEZ RN INCORRECT TIME REFER TO 0710 FOR CORRECT NOTE
[2020-03-16 07:19] LABS: HEMATOCRIT 20 % (33-45); HEMOGLOBIN 6.4 g/dL (11.5-14.8)
--- NOTE | 2020-03-16 07:30 | NUR ---
RECEIVED CRITICAL LAB VALUE HEMOGLOBIN 6.4 INFORMED DOCTOR, AND PER ORDERS ORDERED 1 UNIT PRBCS STAT. NOTED AND CARRIED OUT.
[2020-03-16 07:33] LABS: CALCIUM, SERUM 9.3 mg/dL (8.5-10.1); CREATININE 2.7 mg/dL (0.6-1.3); MAGNESIUM 2.7 mg/dL (1.8-2.4); PHOSPHORUS 3.7 mg/dL (2.5-4.9)
[2020-03-16] MEDS: DOCUSATE SODIUM LIQ 100 MG/10 ML UDC GT SCH ×2 (08:42→17:53)
[2020-03-16] MEDS: VIT B CMPLX 3/FA/VIT C/BIOTIN 1 TAB TABLET GT SCH (08:42)
[2020-03-16] MEDS: LACOSAMIDE 50 MG TABLET GT SCH ×2 (08:42→20:20)
[2020-03-16] MEDS: LINAGLIPTIN 5 MG TABLET PO SCH (08:42)
[2020-03-16] MEDS: CHLORHEXIDINE GLUCONATE 15 ML UDC MM SCH (08:42)
[2020-03-16] MEDS: LEVETIRACETAM SOL (5 ML) 100 MG/ML UDC GT SCH ×2 (08:42→20:20)
[2020-03-16] MEDS: AMLODIPINE BESYLATE 10 MG TABLET PO SCH (08:43)
[2020-03-16] MEDS: DAKINS QUARTER STRENGTH (0.125%) 480 ML BOTTLE TOP SCH (08:43)
[2020-03-16] MEDS: Z GUARD REMEDY 2 OZ OINT TP SCH (08:44)
[2020-03-16] MEDS: PANTOPRAZOLE 40 MG/PACK PACK GT SCH (08:45)
[2020-03-16] MEDS ORDERED: EPOETIN ALFA (10,000 UNIT) 10,000 UNIT/ML VIAL IV ONE (11:00)
[2020-03-16] MEDS: INSULIN REGULAR, HUMAN 100 UNIT/ML 3 ML VIAL SQ PRN (12:22)
--- NOTE | 2020-03-16 13:08 | NUR ---
BLOOD TRANSFUSION ENDED AT 1230. TOLERATED WELL W NO REACTION. MERRY ORDERED CBC FOR TOMORROW.
--- NOTE | 2020-03-16 13:55 | NUR ---
RT Pt received trached on mechanical ventilation with noted settings. Vent alarms are set and audible with BVM by bedside. Spare trach by bedside. No SOB or respiratory distress noted at this time. Addendum: 03/16/20 at 1655 by GRACIELA ARMENTA RT Amended: Links added.
[2020-03-16] MEDS: NEPRO 1,000 ML BOTTLE GT PRN (17:59)
--- NOTE | 2020-03-16 19:05 | NUR ---
RN NOTE RECEIVED PATIENT IN BED RESTING WITH HOB ELEVATED. PATIENT IS OBTUNDED, VENT DEPENDANT. PATIENT IS 49 Y/O FEMALE WITH DX OF SEPSIS AND PNEUMONIA. BREATHING IS EVEN AND UNLABORED. NO SOB NOTED AT THIS TIME. FIO2 IS 45%, PEEP 5. INCONTINENT OF BOWEL AND BLADDER. ON GT FEEDING NEPHRO RUNNING AT 35 ML/HR, RESIDUAL OF 20 ML. IV SITE ON BIJU MIDLINE IS CLEAN, DRY, AND PATENT. NO APPARENT DISTRESS NOTED AT THIS TIME. BED IS LOWERED TO LOW POSITION FOR SAFETY. WILL CONTINUE TO MONITOR.
--- NOTE | 2020-03-16 19:15 | NUR ---
PT ASLEEP IN BED WITH HOB ELEVATED. OBTUNDED BUT OPENS EYES AT RANDOM INTERVALS. VENT SETTINGS PRESCRIBED. TOLERATING WILL WITH SPO2 99-100%. SR ON TELE IN 80-90S. ANURIC. BED BOUND. PATENT SACRAL DRESSING AND CHANGED ORDERED. TF NEPHRO AT 35 ML/HR. NO RESIDUAL. AUSCULTATED FOR PLACEMENT. BIJU MIDLINE FLUSHED AND PATENT. DRESSING DRY AND INTACT. CELE AV SHUNT INTACT. RECEIVED 1 UNIT PRBC ORDERED W NO COMPLICATIONS AND TOLERATED WELL. EXTREMITIES ELEVATED. TURNED Q2H. HOB ELEVATED, BED LOW, LOCKED, RAILS UP X2, ALL HOSPITAL POLICY SAFETY PRECAUTIONS IMPLEMENTED. ENDORSED TO PM RN FOR CONTINUATION OF CARE.
[2020-03-16] MEDS: SENNOSIDES 8.6 MG TABLET GT SCH (21:34)
[2020-03-17] VITALS (11 sets, daily range): BP systolic 130–165; BP diastolic 60–98
--- NOTE | 2020-03-17 04:21 | NUR ---
RT NOTE [facility] mode. Pt shows no signs of resp distress or sob. Trach is patent and secured. pt sx'd for mod amt of pale yellow secretions. Vent plugged into red outlet. Ambu bag and emergency spare trach bedside. Alarms are set and audible. Will continue to monitor. Addendum: 03/17/20 at 0421 by FLOR VILLA RT Amended: Links added.
[2020-03-17] MEDS: SEVELAMER CARBONATE 800 MG POWD.PACK GT SCH ×3 (04:40→21:18)
[2020-03-17] MEDS: METOCLOPRAMIDE HCL 10 MG TABLET PO SCH ×3 (04:40→21:09)
[2020-03-17] MEDS: METRONIDAZOLE 500 MG TABLET PO SCH ×3 (04:40→21:10)
[2020-03-17] MEDS: INSULIN NPH, HUMAN ISOPHANE 100 UNIT/ML VIAL SQ SCH ×3 (05:24→22:07)
[2020-03-17] MEDS: BLOOD SUGAR DIAGNOSTIC 1 EACH STRIP IN SCH ×3 (05:24→17:14)
[2020-03-17] MEDS: INSULIN REGULAR, HUMAN 100 UNIT/ML 3 ML VIAL SQ PRN ×2 (05:25→17:14)
--- NOTE | 2020-03-17 06:39 | NUR ---
RN NOTE PATIENT REMAINED STABLE THROUGHOUT THE NIGHT. NO SIGNIFICANT CHANGES NOTED. PATIENT IS KEPT CLEAN, DRY, AND COMFORTABLE. NOTED X1 BM IN THIS SHIFT. DUE MEDS GIVEN ORDERED AND TOLERATED WELL. REPOSITIONED Q2H. WOUND CARE RENDERED. WILL ENDORSE TO SHIFT RN FOR CONTINUATION OF CARE.
[2020-03-17 06:46] LABS: BASOPHILS % (AUTO) 0.3 % (0.0-2.0); EOSINOPHILS % (AUTO) 1.5 % (0.0-6.0); HEMATOCRIT 22 % (33-45); HEMOGLOBIN 7.3 g/dL (11.5-14.8); LYMPHOCYTES # (AUTO) 0.3 /CMM (0.8-4.8); LYMPHOCYTES % (AUTO) 2.4 % (20.0-44.0); MEAN CORPUSCULAR HGB CONC 33 g/dl (31.0-36.0); MEAN CORPUSCULAR VOLUME 96 fL (82-100); MONOCYTES # (AUTO) 0.6 /CMM (0.1-1.30); MONOCYTES % (AUTO) 4.8 % (2.0-12.0); NEUTROPHILS # (AUTO) 10.9 /CMM (1.8-8.9); PLATELET COUNT (AUTO) 252 /CMM (150-450); RED BLOOD CELL COUNT(AUTO) 2.29 MIL/uL (4.0-5.2)
[2020-03-17 06:58] LABS: CALCIUM, SERUM 9.1 mg/dL (8.5-10.1); CREATININE 3.5 mg/dL (0.6-1.3); PHOSPHORUS 4.4 mg/dL (2.5-4.9)
--- NOTE | 2020-03-17 07:10 | NUR ---
RN NOTES RECEIVED PT ON BED, VENT/ TRACH DEPENDENT, TRACH CARE DONE, TOLERATING CURRENT VENT SETTING WELL, VSS STABLE, ON TELE SR HR IN 90'S , TF AT 35CC/HR RUNNING , NO RESIDUAL NOTED, R UPPER ARM MIDLINE SITE ,CLEAN,DRY AND INTACT, SR UP x3, CALL LIGHT WITHIN EASY REACH, BED LOCKED AND IN LOWEST POSITION, CONTINUE TO MONITOR .
[2020-03-17] MEDS: LINAGLIPTIN 5 MG TABLET PO SCH (08:23)
[2020-03-17] MEDS: CHLORHEXIDINE GLUCONATE 15 ML UDC MM SCH (08:23)
[2020-03-17] MEDS: VIT B CMPLX 3/FA/VIT C/BIOTIN 1 TAB TABLET GT SCH (08:23)
[2020-03-17] MEDS: PANTOPRAZOLE 40 MG/PACK PACK GT SCH (08:23)
[2020-03-17] MEDS: LEVETIRACETAM SOL (5 ML) 100 MG/ML UDC GT SCH ×2 (08:23→21:08)
[2020-03-17] MEDS: AMLODIPINE BESYLATE 10 MG TABLET PO SCH (08:24)
[2020-03-17] MEDS: Z GUARD REMEDY 2 OZ OINT TP SCH (08:25)
[2020-03-17] MEDS: DAKINS QUARTER STRENGTH (0.125%) 480 ML BOTTLE TOP SCH (08:26)
[2020-03-17] MEDS: DOCUSATE SODIUM LIQ 100 MG/10 ML UDC GT SCH ×2 (08:26→17:00)
[2020-03-17] MEDS: LACOSAMIDE 50 MG TABLET GT SCH ×2 (08:28→21:09)
--- NOTE | 2020-03-17 09:00 | NUR ---
RN NOTES PHARMACY NOITFED REGARDING GENTA LEVEL 4.5 ,
--- NOTE | 2020-03-17 12:00 | NUR ---
RN NOTES ORDER RECEIVED FROM DR SOUSA TO TRANSFUSE ONE UNIT OF PRBC .
--- NOTE | 2020-03-17 12:31 | NUR ---
RN NOTES PT IS RECEIVING HD AT THIS TIME,
[2020-03-17] MEDS: ACETAMINOPHEN 650 MG/20.3 ML UDC GT PRN (14:44)
--- NOTE | 2020-03-17 15:15 | NUR ---
RN NOTES DR SOUSA NOTIFIED REGARDING T= 99.6 AXILLARY , OK TO START BLOOD TRANSFUSION PER DR SOUSA
[2020-03-17] MEDS ORDERED: SILVER NITRATE APPLICATOR 1 EA BOX TP SCH (15:30)
[2020-03-17] MEDS ORDERED: LIDOCAINE 0.5%-EPI 1:200,000 50 ML VIAL TP ONE (15:30)
[2020-03-17] MEDS: NEPRO 1,000 ML BOTTLE GT PRN (17:50)
[2020-03-17] MEDS: GENTAMICIN 80 MG in IV D5W 50 ML IV PRN (18:21)
--- NOTE | 2020-03-17 18:35 | NUR ---
RN NOTES PT REMAINS ON VENT , TOLERATING VENT SETTING WELL, RECEIVED ONE UNIT OF PRBC ON THIS SHIFT , TOLERATED WELL, NO DISTRESS NOTED . TF AT 35 CC/HR RUNNING , R UPPER ARM MIDLINE SITE CLEAN,DRY AND INTACT, SR UP x3, CALL LIGHT WITHIN EASY REACH, BED LOCKED AND IN LOWEST POSITION, WILL ENDORSE TO ESTHETICIAN FACIALIST NURSE FOR CONTINUITY OF CARE .
[2020-03-17] MEDS: VANCOMYCIN 500 MG in IV D5W 100 ML IV PRN (18:56)
--- NOTE | 2020-03-17 19:50 | NUR ---
RN OPENING NOTE RECEIVED PATIENT IN BED IN SEMI FOWLERS POSITION TOLERATING CURRENT VENT SETTINGS, NO DISTRESS NOTED ON TELE MONITOR CURRENTLY SR, ON NEPHRO GTF AT 35 CC/HR RUNNING ON RESIDUAL NOTED. RIGHT UPPER ARM MIDLINE PATENT CLEAN, DRY AND INTACT, SIDE RAILS UP x3, CALL LIGHT WITHIN REACH, BED LOCKED AND IN LOWEST POSITION. SAFETY MEASURES IN PLACE WILL CONTINUE TO MONITOR PT.
[2020-03-17] MEDS: SENNOSIDES 8.6 MG TABLET GT SCH (21:09)
[2020-03-18] VITALS: BP 151/72
[2020-03-18] MEDS: BLOOD SUGAR DIAGNOSTIC 1 EACH STRIP IN SCH ×5 (00:17→23:20)
[2020-03-18] MEDS: INSULIN REGULAR, HUMAN 100 UNIT/ML 3 ML VIAL SQ PRN ×5 (00:33→23:20)
[2020-03-18 04:00] VITALS: BP 155/83
[2020-03-18] MEDS: METRONIDAZOLE 500 MG TABLET PO SCH ×3 (04:29→20:39)
[2020-03-18] MEDS: METOCLOPRAMIDE HCL 10 MG TABLET PO SCH ×3 (04:29→20:40)
[2020-03-18] MEDS: SEVELAMER CARBONATE 800 MG POWD.PACK GT SCH ×3 (04:29→20:39)
[2020-03-18] MEDS: INSULIN NPH, HUMAN ISOPHANE 100 UNIT/ML VIAL SQ SCH ×3 (05:19→20:41)
[2020-03-18 06:23] LABS: BASOPHILS # (AUTO) 0.1 /CMM (0.0-0.2); BASOPHILS % (AUTO) 0.5 % (0.0-2.0); EOSINOPHILS % (AUTO) 1.6 % (0.0-6.0); HEMATOCRIT 25 % (33-45); HEMOGLOBIN 8.2 g/dL (11.5-14.8); LYMPHOCYTES # (AUTO) 0.3 /CMM (0.8-4.8); LYMPHOCYTES % (AUTO) 3.1 % (20.0-44.0); MEAN CORPUSCULAR HGB CONC 33 g/dl (31.0-36.0); MEAN CORPUSCULAR VOLUME 91 fL (82-100); MONOCYTES # (AUTO) 0.6 /CMM (0.1-1.30); MONOCYTES % (AUTO) 6.3 % (2.0-12.0); NEUTROPHILS # (AUTO) 8.9 /CMM (1.8-8.9); NEUTROPHILS % (AUTO) 88.5 % (43.0-81.0); PLATELET COUNT (AUTO) 237 /CMM (150-450)
[2020-03-18 06:47] LABS: CALCIUM, SERUM 9.3 mg/dL (8.5-10.1); CREATININE 2.9 mg/dL (0.6-1.3); MAGNESIUM 2.9 mg/dL (1.8-2.4); PHOSPHORUS 3.3 mg/dL (2.5-4.9)
--- NOTE | 2020-03-18 07:06 | NUR ---
RN CLOSING NOTE PT REMAINED AFEBRILE THROUGH SHIFT, TOLERATING CURRENT VENT SETTINGS, HOB ELEVATED, SR ON TELE MONITOR, PT IN NO RESPIRATORY DISTRESS, ENDORSED TO AM RN FOR ELLIOT,
--- NOTE | 2020-03-18 07:10 | NUR ---
PT LYING IN BED WITH EYES OPEN. HOB ELEVATED. VENT SETTINGS PRESCRIBED. TOLERATING WELL SPO2 98-100%. GT FEEDING 35 ML HR TOLERATING WELL. NO RESIDUAL. AUSCULTATED GT FOR PLACEMENT. INTACT. SACRUM COVERED W MEPILEX ORDERED. SR ON TELE IN 80S. SKIN WARM AND FLUSHED. WILL SUCTION PRN AND TURN AND REPOSITION Q2H. WILL CONTINUE TO MONITOR LABS AND VS. ALL HOSPITAL POLICY SAFETY PRECAUTIONS IMPLEMENTED.
[2020-03-18 08:00] VITALS: BP 185/77
[2020-03-18] MEDS: hydrALAZINE HCL IV 20 MG VIAL IV PRN (08:29)
[2020-03-18] MEDS: VIT B CMPLX 3/FA/VIT C/BIOTIN 1 TAB TABLET GT SCH (09:05)
[2020-03-18] MEDS: LACOSAMIDE 50 MG TABLET GT SCH ×2 (09:05→20:38)
[2020-03-18] MEDS: DOCUSATE SODIUM LIQ 100 MG/10 ML UDC GT SCH ×2 (09:05→17:40)
[2020-03-18] MEDS: PANTOPRAZOLE 40 MG/PACK PACK GT SCH (09:05)
[2020-03-18] MEDS: LEVETIRACETAM SOL (5 ML) 100 MG/ML UDC GT SCH ×2 (09:05→20:39)
[2020-03-18] MEDS: AMLODIPINE BESYLATE 10 MG TABLET PO SCH (09:05)
[2020-03-18] MEDS: CHLORHEXIDINE GLUCONATE 15 ML UDC MM SCH (09:05)
[2020-03-18] MEDS: LINAGLIPTIN 5 MG TABLET PO SCH (09:05)
[2020-03-18] MEDS: DAKINS QUARTER STRENGTH (0.125%) 480 ML BOTTLE TOP SCH (09:06)
[2020-03-18] MEDS: Z GUARD REMEDY 2 OZ OINT TP SCH (09:06)
[2020-03-18 12:00] VITALS: BP 148/60
--- NOTE | 2020-03-18 13:00 | NUR ---
PT TOLERATED SACRUM WOUND DEBRIDMENT WELL. MILD BLEEDING. APPLIED PRESSURE WITH GAUZE. COVERED WITH DAKINS SOLUTION, GAUZE, AND TAPED GAUZE AROUND SACRUM ORDERED. WILL MONITOR FOR BLEEDING. NO COMPLICATIONS NOTED.
--- NOTE | 2020-03-18 14:36 | NUR ---
regulo case management notified regarding discharge.
--- NOTE | 2020-03-18 14:37 | NUR ---
awaits rooom number per cm,will continue to follow up.
[2020-03-18] MEDS: ACETAMINOPHEN 650 MG/20.3 ML UDC GT PRN (15:37)
[2020-03-18 16:00] VITALS: BP 148/60
--- NOTE | 2020-03-18 16:55 | NUR ---
follow up with regulo piano case maker bed per regulo still no bed will continue to follow.
[2020-03-18] MEDS: NEPRO 1,000 ML BOTTLE GT PRN (18:25)
--- NOTE | 2020-03-18 19:10 | NUR ---
PT LYING IN BED WITH EYES OPEN. HOB ELEVATED. VENT SETTINGS PRESCRIBED. TOLERATING WELL SPO2 98-100%. GT FEEDING 35 ML HR TOLERATING WELL. NO RESIDUAL. AUSCULTATED GT FOR PLACEMENT. INTACT. SACRUM COVERED W MEPILEX ORDERED. SR ON TELE IN 80-90S. SKIN WARM AND FLUSHED. SUCTIONED PRN AND TURNED AND REPOSITIONED Q2H. ALL HOSPITAL POLICY SAFETY PRECAUTIONS IMPLEMENTED. ENDORSED TO PM RN FOR CONTINUATION OF CARE.
--- NOTE | 2020-03-18 19:20 | NUR ---
RN NOTES RECEIVED PT ON BED, OBTUNDED ON TRACH/VENT SETTING ORDERED SPO2 100%, NO SIGN OF PAIN NOTED, GTUBE ON PLACE PATENT PLACEMENT CHECKED AND VERIFIED RESIDUAL 0ML WITH ONGOING NEPHRO @ 35ML/HR TOLERATING WELL, WITH BIJU MIDLINE PATENT AND FLUSH, CELE AV SHUNT NOTED, SAFETY MEASURE MAINTAINED BED ON LOWEST POSITION AND LOCKED SIDE RAILS UP X2 CALL LIGHT WITHIN REACH WILL CONT TO MONITOR THE PT
[2020-03-18 20:00] VITALS: BP 145/79
--- NOTE | 2020-03-18 21:12 | NUR ---
RT NOTE [facility] Pt shows no signs of resp distress or sob. Trach is patent and secured. pt sx'd for mod amt of pale yellow secretions. Vent plugged into red outlet. Ambu bag and emergency spare trach bedside. Alarms are set and audible. Will continue to monitor. Addendum: 03/18/20 at 2116 by FLOR VILLA RT Amended: Links added.
[2020-03-18] MEDS: SENNOSIDES 8.6 MG TABLET GT SCH (21:13)
[2020-03-19] VITALS: BP 167/77
[2020-03-19 04:00] VITALS: BP 172/68
[2020-03-19] MEDS: METRONIDAZOLE 500 MG TABLET PO SCH ×3 (05:01→21:24)
[2020-03-19] MEDS: METOCLOPRAMIDE HCL 10 MG TABLET PO SCH ×3 (05:01→21:24)
[2020-03-19] MEDS: SEVELAMER CARBONATE 800 MG POWD.PACK GT SCH ×3 (05:01→21:24)
[2020-03-19] MEDS: INSULIN NPH, HUMAN ISOPHANE 100 UNIT/ML VIAL SQ SCH ×3 (05:14→21:26)
[2020-03-19] MEDS: BLOOD SUGAR DIAGNOSTIC 1 EACH STRIP IN SCH ×3 (05:15→17:48)
[2020-03-19] MEDS: INSULIN REGULAR, HUMAN 100 UNIT/ML 3 ML VIAL SQ PRN (05:15)
[2020-03-19] MEDS: hydrALAZINE HCL IV 20 MG VIAL IV PRN (05:16)
--- NOTE | 2020-03-19 06:08 | NUR ---
RN NOTES LATEST BLOOD PRESSURE 148/84 HR 80 WILL CONT TO MONITOR
--- NOTE | 2020-03-19 06:56 | NUR ---
RN CLOSING NOTES PT ON BED ASLEEP, ON TRACH/VENT SETTING ORDERED WITH SPO2 98% TELE MONITOR READS SINUS RHYTHM 85,S NO SIGNIFICANT CHANGES ON CONDITION NOTED, WOUND CARE TREATMENT DONE ORDERED ALL NEEDS ATTENDED SAFETY MEASURE MAINTAINED BED ON LOWEST POSITION AND LOCKED SIDE RAILS UP CALL LIGHT WITHIN REACH WILL ENDORSED TO AM SHIFT NURSE
--- NOTE | 2020-03-19 07:05 | NUR ---
RECEIVED REPORT FROM PM RN. PT VENT SETTINGS ON PRESCRIBED, NO SIGNS OF DISTRESS. RESPIRATIONS EVEN AND UNLABORED. OBTUNDED. SR ON TELE. NEPHRO RUNNING PRESCRIBED 35ML/HR. PATENT. AUSCULTATED GT FOR PLACEMENT. NO RESIDUAL. BIJU MIDNLINE PATENT FLUSHED, DRESSING INTACT. CELE AV SHUNT INTACT NOTED. WILL MONITOR LABS AND VS TODAY. WILL TURN Q2H. WILL SUCTION PRN. ALL HOSPITAL POLICY SAFETY PRECAUTIONS IMPLEMENTED.
[2020-03-19 08:00] VITALS: BP 160/65
[2020-03-19 08:04] LABS: CALCIUM, SERUM 9.6 mg/dL (8.5-10.1); CREATININE 3.5 mg/dL (0.6-1.3); POTASSIUM 4.2 mmol/L (3.5-5.1)
[2020-03-19 08:39] LABS: GENTAMICIN,TROUGH 4.8 ug/ml (0.2-2.0)
[2020-03-19] MEDS: DOCUSATE SODIUM LIQ 100 MG/10 ML UDC GT SCH ×2 (09:08→17:48)
[2020-03-19] MEDS: CHLORHEXIDINE GLUCONATE 15 ML UDC MM SCH (09:08)
[2020-03-19] MEDS: VIT B CMPLX 3/FA/VIT C/BIOTIN 1 TAB TABLET GT SCH (09:09)
[2020-03-19] MEDS: PANTOPRAZOLE 40 MG/PACK PACK GT SCH (09:09)
[2020-03-19] MEDS: LINAGLIPTIN 5 MG TABLET PO SCH (09:09)
[2020-03-19] MEDS: LEVETIRACETAM SOL (5 ML) 100 MG/ML UDC GT SCH ×2 (09:09→21:23)
[2020-03-19] MEDS: AMLODIPINE BESYLATE 10 MG TABLET PO SCH (09:09)
[2020-03-19] MEDS: LACOSAMIDE 50 MG TABLET GT SCH ×2 (09:10→21:24)
[2020-03-19] MEDS: DAKINS QUARTER STRENGTH (0.125%) 480 ML BOTTLE TOP SCH (09:10)
[2020-03-19] MEDS: Z GUARD REMEDY 2 OZ OINT TP SCH (09:11)
[2020-03-19 12:00] VITALS: BP 167/74
[2020-03-19] MEDS ORDERED: FAMOTIDINE/PF INJ 20 MG/2 ML VIAL IV ONE (12:00)
--- NOTE | 2020-03-19 12:00 | NUR ---
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
[2020-03-19] MEDS: ACETAMINOPHEN 650 MG/20.3 ML UDC GT PRN ×3 (12:32→21:22)
--- NOTE | 2020-03-19 15:00 | NUR ---
PT COMPLETED DIALYSIS W [employer] [facility]. OUTPUT 700ML. PT TOLERATED WELL.
[2020-03-19 16:00] VITALS: BP 111/49
[2020-03-19] MEDS ORDERED: PNEUMOCOCCAL 23-VAL P-SAC VAC 0.5 ML VIAL SQ ONE (17:00)
[2020-03-19] MEDS ORDERED: INFLUENZA VACCINE 2020-21 0.5 ML DISP.SYRIN IM ONE (18:00)
--- NOTE | 2020-03-19 19:25 | NUR ---
PT LYING IN BED W HOB ELEVATED. VENT SETTINGS ON PRESCRIBED, NO SIGNS OF DISTRESS. RESPIRATIONS EVEN AND UNLABORED. OBTUNDED. SR ON TELE. NEPHRO RUNNING PRESCRIBED 35ML/HR. PATENT. AUSCULTATED GT FOR PLACEMENT BEFORE EACH MEDICATION ADMINISTRATION. NO RESIDUAL THROUGHOUT SHIFT. BIJU MIDNLINE PATENT FLUSHED, DRESSING INTACT. CELE AV SHUNT INTACT NOTED. MONITORED LABS AND VS TODAY. TURNED Q2H. SUCTIONED PRN. ALL HOSPITAL POLICY SAFETY PRECAUTIONS IMPLEMENTED. PT AWAITING DC TO [facility]. ENDORSED TO PM RN.
--- NOTE | 2020-03-19 19:30 | NUR ---
RN NOTE RECEIVED PATIENT IN BED, OBTUNDED. PATIENT IN NO S/SX OF ACUTE DISTRESS AT THIS TIME, WITH TRACH CONNECTED TO MECHANICAL VENT WITH SETTINGS PRESCRIBED. PATIENT'S BREATHING IS EVEN AND UNLABORED, SATURATING AT 100%, SR ON THE MONITOR, HR IS 87. GTUBE INTACT, MINIMAL RESIDUAL NOTED, PLACEMENT CHECKED, NOTED PRESENCE OF GASTRIC CONTENTS ON ASPIRATION AND GURLING SOUND ON AUSCULTATION. NOTED BIJU MIDLINE, PATENT AND FLUSHING WELL , NO S/S OF INFECTION OR INFILTRATION. NOTED PRESSURE ULCER AT SACRAL AREA, WOUND DRESSING INTACT. SAFETY MEASURES IMPLEMENTED PER PROTOCOL. PATIENT BED ALARM IS ON. HEAD OF BED ELEVATED. BED IS LOCKED, IN LOWEST POSITION AND SIDE RAILS UP. CALL LIGHT WITHIN REACH OF THE PATIENT. WILL CONTINUE TO MONITOR AND REASSESS FOR ANY CHANGES. AWAITING FOR AMBULACE FOR TRANSFER TO [facility].
[2020-03-19 20:00] VITALS: BP 151/74
--- NOTE | 2020-03-19 20:15 | NUR ---
RN NOTE TELEPHONE CALL TO [facility], SPOKE WITH TESSY Moura RN, CONFIRMED PATIENT ROOM NUMBER [id number]. GAVE NURSING REPORT AND OTHER PERTINENT INFO. PROVIDED CALL BACK NUMBER FOR QUESTIONS. TESSY FOX ACKNOWLEDGED ALL INFORMATION GIVEN.
--- NOTE | 2020-03-19 20:35 | NUR ---
RN NOTE EMT ROSALIE FROM [facility] ARRIVED AT UNIT AT 2014 WITH 2 OTHER EMT PERSONNEL. REPORT GIVEN TO ROSALIE. PATIENT IN NO ACUTE DISTRESS, TRACH CONNECTED TO [facility] VENT WITH SETTINGS PRESCRIBED. V/S TAKEN AND RECORDED BP 151/74, T 99.1, HR 87, R 18 O2 SAT 100%, ADMINISTERED TYLENOL 650 MG PRN. DUE MEDICATIONS ADMINISTERED. PATIENT ID BAND CONFIRMED WITH TRANSPORTATION TEAM. PATIENT TRANSFERRED TO [facility] IN STABLE CONDITION. PATIENT HAS NO BELONGINGS. PATIENT SAFETY WAS MAINTAINED. TRANSPORT TEAM LEFT AT 2034. , CAROLYN ASH WAS NOTIFIED VIA PHONE CALL.
== END 2020-03-19 20:35 | disposition short-term general hospital (02) | DRG 981 ==
LOC: ER 17:56 → ICU 21:48 → TELE1 03-06 15:34
PROVIDERS: ADMIT Nurse Practitioner Acute Care; ATTEND Internal Medicine Nephrology
PROC: 5A1955Z Respiratory Ventilation, Greater than 96 Consecutive Hours (ICD-10-PCS; principal; 2020-03-04)
PROC: 05H933Z Insertion of Infusion Device into Right Brachial Vein, Percutaneous Approach (ICD-10-PCS; 2020-03-04)
PROC: 5A1D70Z Performance of Urinary Filtration, Intermittent, Less than 6 Hours Per Day (ICD-10-PCS; 2020-03-06)
PROC: 0KBP0ZZ Excision of Left Hip Muscle, Open Approach (ICD-10-PCS; 2020-03-11)
PROC: 0KBN0ZZ Excision of Right Hip Muscle, Open Approach (ICD-10-PCS; 2020-03-11)
PROC: 30233N1 Transfusion of Nonautologous Red Blood Cells into Peripheral Vein, Percutaneous Approach (ICD-10-PCS; 2020-03-16)
PROC: 0KBP0ZZ Excision of Left Hip Muscle, Open Approach (ICD-10-PCS; 2020-03-18)
PROC: 0KBN0ZZ Excision of Right Hip Muscle, Open Approach (ICD-10-PCS; 2020-03-18)
DX: J95.851 Ventilator associated pneumonia (principal); A41.9 Sepsis, unspecified organism; L89.154 Pressure ulcer of sacral region, stage 4; N18.6 End stage renal disease; G93.41 Metabolic encephalopathy; J18.9 Pneumonia, unspecified organism; E43 Unspecified severe protein-calorie malnutrition; R65.21 Severe sepsis with septic shock; R57.1 Hypovolemic shock; Z99.11 Dependence on respirator [ventilator] status; Z68.1 Body mass index [BMI] 19.9 or less, adult; I13.2 Hypertensive heart and chronic kidney disease with heart failure and with stage 5 chronic kidney disease, or end stage renal disease; J90 Pleural effusion, not elsewhere classified; G93.1 Anoxic brain damage, not elsewhere classified; J96.10 Chronic respiratory failure, unspecified whether with hypoxia or hypercapnia; Z93.0 Tracheostomy status; E11.22 Type 2 diabetes mellitus with diabetic chronic kidney disease; D63.8 Anemia in other chronic diseases classified elsewhere; G40.909 Epilepsy, unspecified, not intractable, without status epilepticus; I50.9 Heart failure, unspecified; Z99.2 Dependence on renal dialysis; Z93.1 Gastrostomy status; R13.10 Dysphagia, unspecified; E78.5 Hyperlipidemia, unspecified; E87.6 Hypokalemia; I95.3 Hypotension of hemodialysis; Y84.9 Medical procedure, unspecified as the cause of abnormal reaction of the patient, or of later complication, without mention of misadventure at the time of the procedure; Y82.9 Unspecified medical devices associated with adverse incidents; Y92.129 Unspecified place in nursing home as the place of occurrence of the external cause; Y95 Nosocomial condition; B96.5 Pseudomonas (aeruginosa) (mallei) (pseudomallei) as the cause of diseases classified elsewhere
CPT/HCPCS: 31720; 36410; 36415; 71045-TC; 74018; 80048-TC; 80053-TC; 80061-TC; 80076-TC; 80170-TC; 80202-TC; 82533; 82550-TC; 82728-TC; 82962-TC; 83540-TC; 83605-TC; 83615-TC; 83735-TC; 83880; 84100-TC; 84439-TC; 84443-TC; 84484-TC; 84702-TC; 85025-TC; 85027-TC; 85378-TC; 85730-TC; 86140-TC; 86706; 86850-TC; 87040-TC; 87070-TC; 87081-TC; 87186-TC; 87340; 90732; 90935-TC; 93307-TC; 94002-TC; 94003-TC; 94760-TC; 94762-TC; 94799-TC; 99082-TC; A4623; A6253; A6403; A7526; C9113; G0378; J0360; J0885; J1100; J1580; J1720; J1815; J1953; J2185; J2543; J3370; J3480; J3490; J7030; J7040; J7050; J7060; J8597; P9016-BL; Q2036; U0003